=== PATIENT | female | born 1940 | race Caucasian/White ===

== ENCOUNTER 2022-04-06 14:23 | Outpatient (REF) | payer MEDICARE, SELFPAY | END 2022-04-06 14:24 | disposition home or self-care (01) | LOC: HO.LNP 14:23 | PROVIDERS: Visit Provider Emergency Medicine | DX: R30.0 Dysuria (principal) | CPT/HCPCS: 87086; 87088; 87186 ==

== ENCOUNTER 2022-06-10 11:58 | Outpatient (REF) | payer MEDICARE, SELFPAY | END 2022-06-10 11:59 | disposition home or self-care (01) | LOC: HO.LNP 11:58 | PROVIDERS: Visit Provider Internal Medicine | DX: N30.90 Cystitis, unspecified without hematuria (principal) | CPT/HCPCS: 87086; 87088; 87186 ==

== ENCOUNTER 2022-12-10 13:57 | Outpatient (REF) | payer MEDICARE, SELFPAY ==
[2022-12-11 14:17] LABS: Adenovirus F 40/41 Not Detected (Not Detect.); Astrovirus Not Detected (Not Detect.); Campylobacter Not Detected (Not Detect.); Cryptosporidium Not Detected (Not Detect.); Cyclospora cayetanensis Not Detected (Not Detect.); E. coli EAEC Not Detected (Not Detect.); E. coli EPEC Not Detected (Not Detect.); E. coli ETEC Not Detected (Not Detect.); E. coli STEC Not Detected (Not Detect.); Entamoeba histolytica Not Detected (Not Detect.); Giardia lamblia Not Detected (Not Detect.); Norovirus GI/GII Not Detected (Not Detect.); Plesiomonas shigelloides Not Detected (Not Detect.); Rotavirus A Not Detected (Not Detect.); Salmonella Not Detected (Not Detect.); Sapovirus Not Detected (Not Detect.); Shigella sp./EIEC Not Detected (Not Detect.); Vibrio Not Detected (Not Detect.); Vibrio Cholerae Not Detected (Not Detect.); Yersinia enterocolitica Not Detected (Not Detect.)
== END 2022-12-10 13:58 | disposition home or self-care (01) ==
LOC: HO.HMGCLNP 13:57
PROVIDERS: PCP Internal Medicine; Visit Provider Internal Medicine
DX: R19.7 Diarrhea, unspecified (principal)
CPT/HCPCS: 87507

== ENCOUNTER 2023-07-03 11:26 | Emergency (ER) | payer MEDICARE, SELFPAY ==
[2023-07-03 11:39] VITALS: BP 143/84; PULSE 90; O2SAT 96
[2023-07-03 11:42] VITALS: RESP 18; TEMP 36.7; O2SAT 91; BMI 25.8
--- NOTE | 2023-07-03 11:42 | ED.GENADULT ---
HPI - General Adult General Chief complaint: General Medical Stated complaint: Covid+/ Sore throat Time Seen by Provider: 07/03/23 11:30 Source: patient and EMS Mode of arrival: EMS Limitations: no limitations History of Present Illness HPI narrative: This is an 83-year-old female history of diabetes, hypertension, hyperlipidemia, tested positive for COVID yesterday 07/02/2023 presenting with congestion, fatigue, malaise, myalgias, sore throat since the reason she came in was because her throat was hurting a lot and she was having difficulty eating since Tuesday. She reports she has tried to drink fluids however hurts. Patient denies chest pain, shortness of breath, fevers, chills, nausea, vomiting, abdominal pain or diarrhea. Was advised to come in by her family member who is a nurse. Related Data Home Medications Medication Instructions Recorded Confirmed atorvastatin 80 mg tablet 80 mg PO DAILY 04/24/22 12/02/22 levothyroxine 100 mcg tablet 100 mcg PO DAILY 04/24/22 12/02/22 (Synthroid) metformin 500 mg tablet 500 mg PO BID 04/24/22 12/02/22 valsartan 320 mg tablet 320 mg PO DAILY 04/24/22 12/02/22 atenolol 50 mg tablet 50 mg PO DAILY 05/21/22 12/02/22 Previous Rx's Medication Instructions Recorded Magic Mouthwash 5 ml PO TID #240 mL 07/03/23 Diphen/Lido/Antacid 1:1:1 240 mL suspension Allergies Allergy/AdvReac Type Severity Reaction Status Date / Time No Known Allergies Allergy Verified 12/02/22 11:00 Review of Systems Review of Systems: Constitutional : No Weight loss, No Fever, No Chills, + Fatigue, + Malaise ENT/Mouth : + sore throat, No Rhinorrhea Eyes: No Eye Pain, No Swelling, No Redness Cardiovascular : No Chest Pain, No SOB, No Dyspnea on Exertion, No Orthopnea, No Edema, No Palpitations Respiratory : No Cough, No Sputum, No Wheezing Gastrointestinal : No Nausea, No Vomiting, No Diarrhea, No Constipation, No abdominal Pain, No Hematochezia, No Melena Genitourinary : No Dysuria, No Urinary Frequency, No Hematuria, Musculoskeletal : No joint pain, + Myalgias, No Joint Swelling Skin : No Skin Lesions, No rash Neuro : No Weakness, No Numbness, No Dizziness, No Headache Psych : No Anxiety/Panic, No Depression All other systems reviewed and are negative Yes all other systems are reviewed and are negative [facility]LY [facility] Past Medical History Attestation statement: The following information was validated with the patient. Source: old records reviewed and nursing notes reviewed Surgical History Hx of appendectomy H/O: hysterectomy Family History Family History Father No problems noted. Mother Hypertension Cancer Brother Cancer Brother Cancer Social History Social History Housing: Condominium Patient Tobacco Use Status: Never used Tobacco e-Cigarette/Vaping Use: Never Used Advance Directives: No Current occupational status: retired Cognitive needs: No Hearing needs: No Vision needs: Yes Physical Exam ED Vital Signs: Vital Signs - 24 hr 07/03/23 11:42 07/03/23 11:45 Temperature 98.1 F Pulse Rate 86 Respiratory Rate 18 Blood Pressure 129/77 Pulse Oximetry 91 L Oxygen Delivery Method Room Air BMI result Body Mass Index 25.8 vss Appearance: Alert.? Oriented X3.? No acute distress.? Head: Normocephalic, atraumatic, no step-offs or deformities Eyes: Pupils equal, round and reactive to light.? ENT: Pharynx normal.??Midline uvula. No abscess or exudates visualized. Speaking in full sentences controlling secretions well. Neck: Normal inspection.? Neck supple.? CVS: Normal heart rate and rhythm.? Pulses normal.? Respiratory: No respiratory distress.? Breath sounds normal.? Abdomen: Soft and nontender.? Skin: Skin warm and dry.? Normal skin color.? Normal skin turgor.? Extremities: No lower extremity edema.? 5/5 strength to bilateral upper and lower extremities Neuro: Oriented X 3.? No motor deficit.? No sensory deficit. CN 2-12 intact Medical Decision Making Medical Decision Making MDM Narrative: 83-year-old female known COVID positive presents with sore throat, fatigue, malaise, myalgias and congestion since . Physical exam Pharynx normal.??Midline uvula. No abscess or exudates visualized. Speaking in full sentences controlling secretions well. History and physical exam concerning for COVID-19 with subsequent pharyngitis, unlikely strep pharyngitis, retropharyngeal abscess, peritonsillar abscess, threat to airway, respiratory distress. Unlikely metabolic derangements. Plan at this time strep test, p.o. challenge will give viscous lidocaine Educated patient on diagnosis and treatment plan, answered all question, patient verbalizes understanding. At this time patient will be discharged home, advised to return with new or worsening symptoms. Educated on worrisome signs and symptoms and when to return. At this time I feel comfortable discharge home. Differential Diagnosis Differential Diagnoses: The differential diagnosis associated with the presentation includes History and physical exam concerning for COVID-19 with subsequent pharyngitis, unlikely strep pharyngitis, retropharyngeal abscess, peritonsillar abscess, threat to airway, respiratory distress. Unlikely metabolic derangements. Admission/Observation Consideration of admission/observation: Escalation of care including admission/observation considered Lab Data MDM Lab Attestation statement: I reviewed the patient's lab results. Tests considered The following testing was considered but not selected: no indication for labs no signs of systemic illness. No signs of threat to airway or abscess no need for imaging of throat/ neck Tollerating po unlikley metabolic derangments Prescription Management Considered Paxlovid however symptom onset risks outweigh benifits at this time Critical Care Time Critical Care Time Critical Care Time: No Discharge Plan Discharge Clinical Impression: COVID-19, Sore throat Patient Disposition: Home, Self-Care Instructions: Pharyngitis (ED), COVID-19 (Coronavirus Disease 2019) (ED) Additional Instructions: Take your medications as prescribed. If you were prescribed antibiotics today, it is important that you take your medication to their entirety, do not skip any doses, do not finish them early. Follow-up with your primary care provider this week. Return to the emergency department with new or worsening symptoms. Such as fevers, chills, chest pain, shortness of breath, nausea, vomiting, dizziness, headache, vision changes, lethargy In case of emergency call 911 Please do salt water gargle 2-3 times a day Prescriptions: New Magic Mouthwash Diphen/Lido/Antacid 1:1:1 240 mL suspension 5 ml PO TID Qty: 240 0RF Rx Instructions: Lidocaine Viscous 2 % 80mL; diphenhydramine 12.5 mg/5 mL 80mL; aluminum-mag hydrox-simeth [id number]/5mL 80mL Swish and spit, do not swallow No Action levothyroxine [Synthroid] 100 mcg tablet 100 mcg PO DAILY atorvastatin 80 mg tablet 80 mg PO DAILY metformin 500 mg tablet 500 mg PO BID valsartan 320 mg tablet 320 mg PO DAILY atenolol 50 mg tablet 50 mg PO DAILY Referrals: Amna Beckham MD [Primary Care Provider] - 2 days
[2023-07-03 11:45] VITALS: BP 129/77; PULSE 86
[2023-07-03] MEDS: Lidocaine HCl Viscous 2 % 15 ML SOLUTION 10 ML MUCOUS MEM (11:49)
--- NOTE | 2023-07-03 11:52 | PC.NURSE ---
Patient reports tested positive for covid 07/02 and has a sore throat. Denies sob, chest pain, or headache. Medicated per mar
== END 2023-07-03 13:02 | disposition home or self-care (01) ==
PROVIDERS: Emergency Provider Emergency Medicine; PCP Internal Medicine
DX: U07.1 COVID-19 (principal); J02.9 Acute pharyngitis, unspecified; E11.9 Type 2 diabetes mellitus without complications; I10 Essential (primary) hypertension
CPT/HCPCS: 99283; 99284

== ENCOUNTER 2023-12-09 09:19 | Outpatient (AMB) | payer MEDICARE, SELFPAY ==
[2023-12-09 09:20] VITALS: BP 104/62; PULSE 77; O2SAT 95; BMI 25.3
--- NOTE | 2023-12-09 09:20 | MHC.PC.OV ---
Vital Signs 12/09/23 09:20 Height 5 ft 6 in Weight 157 lb BMI 25.3 BP 104/62 Blood Pressure Location Rt brachial Position Sitting Pulse 77 Pulse Source Pulse Oximeter Pulse Oximetry (%) 95 Oxygen Delivery Method Room Air Intake Visit Reasons: Left Leg pain Intake Note: Pt is here today for a sick visit. Pt c/o L lower leg pain for a long time now. Allergies No Known Allergies Allergy (Verified 12/09/23 09:21) Medication List - Last Reconciled 12/09/23 by Amna Beckham MD atenolol 50 mg PO DAILY atorvastatin 80 mg PO DAILY donepezil 5 mg PO BEDTIME levothyroxine (Synthroid) 100 mcg PO DAILY Magic Mouthwash Diphen/Lido/Antacid 1:1:1 5 mL PO TID metformin 500 mg PO BID valsartan 320 mg PO DAILY Tobacco use date assessed: 12/09/23 Fall risk assessment: No Falls in past year Last assessed Fall Risk: 12/09/23 Dental Screening Dental Screen Date: 12/09/23 Did you have a dental visit in the last 12 months?: No Did you have a dental problem in the last 6 months where you did not have access to dental care?: No Was dental information given to patient?: Patient declined HPI Left Leg pain HPI Details Pt presents for follow-up on hypertension, hyperlipidemia and hypothyroid. She complains of chronic and persistent LLE worse when walking getting worse over last 2 weeks. She denies pain at rest or lower back pain, weakness or numbness in extremities PFSH Surgical History Hx of appendectomy H/O: hysterectomy Family History Father No problems noted. Mother Hypertension Cancer Brother Cancer Brother Cancer Social History Housing: Condominium Patient Tobacco Use Status: Never used Tobacco e-Cigarette/Vaping Use: Never Used service: No Current occupational status: retired Cognitive needs: No Hearing needs: No Vision needs: Yes Questionnaire PHQ-9 Over the last 2 weeks, how often have you been bothered by any of the following problems? 1. Little interest or pleasure in doing things: not at all 2. Feeling down, depressed, or hopeless: not at all 3. Trouble falling or staying asleep, or sleeping too much: not at all 4. Feeling tired or having little energy: not at all 5. Poor appetite or overeating: not at all 6. Feeling bad about yourself - or that you are a failure or have let yourself or your family down: not at all 7. Trouble concentrating on things, such as reading the newspaper or watching television: not at all 8. Moving or speaking so slowly that other people could have noticed. Or the opposite - being so fidgety or restless that you have been moving around a lot more than usual: not at all 9. Thoughts that you would be better off or of hurting yourself in some way: not at all Total score: 0 Depression Screening Interpretation: Negative Depression Screening Done: Yes Source: Developed by Drs. Tremayne Gomez, Malu Muro, Mj Taylor and colleagues, with an educational viky from [employer]. Thrive Questionnaire Date Thrive assessed: 12/09/23 I am a: Patient What is your living situation today?: I have a steady place to live Within the past 12 months, did the food you bought not last and you didn't have the money to get more?: Never true Within the past 12 months, did you worry whether your food would run out before you got money to buy more?: Never true Do you have trouble paying for medicines?: No Do you have trouble getting transportation to medical appointments?: No Do you have trouble paying your heating and electricity bill?: No Do you have trouble taking care of your child, family member or friend?: No Do you have trouble with day-to-day activities such as bathing, preparing meals, shopping, managing finances, etc.?: No Are you currently unemployed and looking for a job?: No Are you interested in more education?: No Please select the resources that you would like help with: None THRIVE Score: 0 AUDIT C Alcohol Use Questionnaire (AUDIT-C) 1. How often do you have a drink containing alcohol?: Never 3. How often do you have six or more drinks on one occasion?: Never Total Score: 0 ROBBY-7 AMB Questionnaire ROBBY-7 Date ROBBY - 7 assessed: 12/09/23 Feeling nervous, anxious, or on edge: 0 = Not at all Not being able to stop or control worryin = Not at all Worrying too much about different things: 0 = Not at all Trouble relaxin = Not at all Being so restless that it is hard to sit still: 0 = Not at all Becoming easily annoyed or irritable: 0 = Not at all Feeling afraid as if something awful might happen: 0 = Not at all Total ROBBY-7 score (0-4 normal; 5-9 mild; 10-14 moderate; 15-21 severe): 0 Source: Developed by Drs. Tremayne Gomez, Malu Muro, Mj Taylor and colleagues, with an educational viky from [employer]. Review of Systems Const All systems reviewed & are unremarkable except as noted in HPI and below ENT Reports no additional complaints Card Reports no additional complaints Resp Reports no additional complaints GI Reports no additional complaints Reports no additional complaints Physical exam (Primary Care) Vital Signs: Last Vital Signs Pulse 77 12/09/23 09:20 BP 104/62 12/09/23 09:20 Pulse Ox 95 12/09/23 09:20 Oxygen Delivery Method Room Air 12/09/23 09:20 BMI result Body Mass Index 25.3 Tobacco/Smoking Status: Tobacco use Status Tobacco use date assessed 12/09/23 12/09/23 09:29 Patient Tobacco Use Status Never used Tobacco 12/09/23 09:29 e-Cigarette/Vaping Use Never Used 12/09/23 09:29 PHQ-9: PHQ-9 Score PHQ-9: Total score 0 12/09/23 10:13 Depression Screening Interpretation: Negative Thrive Assessment: Date of Thrive Assessment Date Thrive assessed 12/09/23 12/09/23 10:13 Const General: no acute distress HENMT Head: Yes normal to inspection Eyes General: appearance normal, both eyes and all related structures Neck Neck: Yes supple Resp Effort & Inspection: normal respiratory effort Auscultation: clear to auscultation bilaterally Cardio Rhythm: regular rhythm Heart sounds: S1 normal heart sound present and S2 normal heart sound present GI Inspection: Yes normal to inspection Palpation (GI): Soft to palpation Percussion: Yes normal to percussion Auscultation: normal bowel sounds Extrem Other: There is a left calf tenderness, no erythema warmth, straight leg rising 90 degrees bilaterally there is slightly decreased range of motion in the hips bilaterally Assessment and Plan Assessment & Plan (1) HTN (hypertension): Code(s): I10 - Essential (primary) hypertension Plan: Continue atenolol and valsartan (2) Hyperlipidemia: Code(s): E78.5 - Hyperlipidemia, unspecified Plan: Continue atorvastatin (3) DM type 2 (diabetes mellitus, type 2): Code(s): E11.9 - Type 2 diabetes mellitus without complications Plan: ADA diet regular exercise weight loss discussed with the patient she will have a fasting blood work today. (4) Leg pain, left: Code(s): M79.605 - Pain in left leg Plan: For chronic left lower extremity pain and tenderness will obtain venous Doppler to rule out DVT, patient will be referred to physical therapy for radiculopathy Orders: Orders UA w Microscopic Today E11.9 - Type 2 diabetes mellitus without complications, E78.5 - Hyperlipidemia, unspecified, I10 - Essential (primary) hypertension Urine Culture Today E11.9 - Type 2 diabetes mellitus without complications, E78.5 - Hyperlipidemia, unspecified, I10 - Essential (primary) hypertension Complete Blood Count Auto Diff Today E11.9 - Type 2 diabetes mellitus without complications, E78.5 - Hyperlipidemia, unspecified, I10 - Essential (primary) hypertension Hemoglobin A1c Today E11.9 - Type 2 diabetes mellitus without complications, E78.5 - Hyperlipidemia, unspecified, I10 - Essential (primary) hypertension TSH reflex Free T4 Today E11.9 - Type 2 diabetes mellitus without complications, E78.5 - Hyperlipidemia, unspecified, I10 - Essential (primary) hypertension Comprehensive [place]. Panel Fast Today E11.9 - Type 2 diabetes mellitus without complications, E78.5 - Hyperlipidemia, unspecified, I10 - Essential (primary) hypertension GI Panel Today E11.9 - Type 2 diabetes mellitus without complications, E78.5 - Hyperlipidemia, unspecified, I10 - Essential (primary) hypertension Lipid Panel Today E11.9 - Type 2 diabetes mellitus without complications, E78.5 - Hyperlipidemia, unspecified, I10 - Essential (primary) hypertension PT Evaluation and Treatment Today E11.9 - Type 2 diabetes mellitus without complications, E78.5 - Hyperlipidemia, unspecified, I10 - Essential (primary) hypertension US venous duplex LE LT Today M79.605 - Pain in left leg Coding Level of Care Code Est Pt Level 4 (74129) Diagnoses HTN (hypertension) I10 Hyperlipidemia E78.5 DM type 2 (diabetes mellitus, type 2) E11.9 Leg pain, left M79.605
== END 2023-12-09 11:13 | disposition home or self-care (01) ==
PROVIDERS: PCP Internal Medicine; Visit Provider Internal Medicine
DX: I10 Essential (primary) hypertension (principal); E78.5 Hyperlipidemia, unspecified; E11.9 Type 2 diabetes mellitus without complications; M79.605 Pain in left leg
CPT/HCPCS: 99214

== ENCOUNTER 2023-12-09 10:36 | Outpatient (REF) | payer MEDICARE, SELFPAY ==
--- NOTE | ~2023-12-09 | US_ITS ---
EXAMINATION: US VENOUS ULTRASOUND WITH DOPPLER LOWER EXTREMITY, LEFT CLINICAL INFORMATION: Pain COMPARISON: None available. TECHNIQUE: Ultrasound of the deep veins is performed from the hip to the calf with compression sonography and color and pulse Doppler assessment. Spectral analysis with color-flow imaging is performed. FINDINGS: There is normal venous compression and respiratory variation and augmented flow. The visualized common femoral vein, superficial femoral vein, profunda femoral vein, popliteal vein, and the trifurcation region shows no evidence of deep venous thrombosis. There is no significant popliteal fossa cyst. US/US venous duplex LE LT IMPRESSION: No DVT demonstrated in the left lower extremity.
[2023-12-09 13:15] LABS: MANUAL DIFF FLAG NO
[2023-12-09 13:17] LABS: Appearance Urine Turbid; Color Urine Yellow; Glucose Urine UA Negative (Negative); Leukocyte Esterase Urine Large (3+) (Negative); Nitrite Urine Negative (Negative); Specific Gravity - Urine >= 1.030 (1.005-1.025); UMIC TRIGGER UA YES; Urine Blood Moderate (2+) (Negative); Urine Ketones Negative (Negative); Urine Protein 100 (2+) mg/dL (Neg-Trace)
[2023-12-09 13:28] LABS: Basophils Absolute Auto 0.1 X10*3/uL (0.0-0.2); Basophils Percent Auto 0.5 % (0-2); Eosinophils Absolute Auto 0.2 X10*3/uL (0.0-0.4); Eosinophils Percent Auto 1.6 % (0-4); Hematocrit 40.7 % (37.0-47.0); Hemoglobin 13.4 g/dl (12.0-16.0); Imm Gran Abs Auto 0.02 X10*3/uL (0.00-0.03); Imm Gran Pct Auto 0.2 % (0.0-0.4); Lymphocytes Absolute Auto 2.1 X10*3/uL (1.2-4.9); Lymphocytes Percent Auto 21.1 % (20-40); Mean Corpuscular HGB Conc 32.9 g/dl (31.0-35.0); Mean Corpuscular Volume 91.1 fL (80.0-98.0); Monocytes Absolute Auto 0.7 X10*3/uL (0.1-1.2); Monocytes Percent Auto 6.9 % (2-11); Neutrophils Absolute Auto 6.8 x10*3/uL (2.0-8.3); Neutrophils Percent Auto 69.7 % (45-73); Platelet Count 218 X10*3/uL (160-400); Red Blood Count 4.47 X10*6/uL (4.20-5.50); Red Cell Distribution Width 14.2 % (11.0-16.0); White Blood Count 9.8 X10*3/uL (4.8-10.8)
[2023-12-09 13:36] LABS: Estimated Average Glucose 126 mg/dL; Hemoglobin A1C 148.5372 umol/L
[2023-12-09 13:37] LABS: Bacteria Urine 4+ (None Seen); Hyaline Casts Urine 0-2 /LPF (0-2); RBC Urine >20 /HPF (0-2); Squamous Epithelial Cell Urine 0-2 /HPF (0-2); WBC Urine >50 /HPF (0-5)
[2023-12-09 13:56] LABS: Alanine Aminotransferase 27 U/L (0-31); Albumin Level 4.3 g/dL (3.5-5.0); Alkaline Phosphatase 72 U/L (39-117); Anion Gap 17 (12-20); Aspartate Amino Transferase 25 U/L (5-31); Bilirubin Total 0.6 mg/dL (0.0-1.0); Blood Urea Nitrogen 30 mg/dL (9-16); Calcium 9.8 mg/dL (8.4-10.2); Carbon Dioxide 22 mmol/L (22-29); Chloride 104 mmol/L (96-108); Cholesterol 147 mg/dL (<200); Estimated Glomerular Filt Rate 49; Glucose Fasting 101 mg/dL (60-99); HDL Cholesterol 34 mg/dL (>40); LDL Cholesterol Calculated 72 mg/dL (<100); Potassium 3.9 mmol/L (3.3-5.1); Sodium 139 mmol/L (135-145); Total Protein 7.4 g/dL (6.5-8.0); Triglycerides 208 mg/dL (<150)
[2023-12-09 13:59] LABS: TSH reflex Free T4 0.95 uIU/mL (0.32-4.0)
== END 2023-12-09 10:37 | disposition home or self-care (01) ==
LOC: HO.HMGCX 10:36
PROVIDERS: PCP Internal Medicine; Visit Provider Internal Medicine
DX: M79.605 Pain in left leg (principal); E11.9 Type 2 diabetes mellitus without complications; E78.5 Hyperlipidemia, unspecified; I10 Essential (primary) hypertension
CPT/HCPCS: 36415; 80053; 80061; 81001; 83036; 84443; 85025; 87086; 87088; 87186; 93971

== ENCOUNTER 2024-01-27 13:06 | Outpatient (AMB) | payer MEDICARE, SELFPAY ==
[2024-01-27 13:21] VITALS: BMI 25.2
--- NOTE | 2024-01-27 13:21 | MHC.PC.OV ---
Vital Signs 01/27/24 13:21 Height 5 ft 6 in Weight 156 lb BMI 25.2 Intake Visit Reasons: dinorah chicon to emili Intake Note: Patient has seen NEAL Balderas in [place] and is scheduled for an ultrasound for the pelvic/vaginal area. Chronic UTI's x2 years- started treating with medication, nitrofurantoin 100mg BID, yesterday and it has not helped. Patient states she was screaming in pain still. Patient reports she has frequent episodes of watery stools since June, patient's OBGYN also has stool samples and these results are still pending. Patient reports left leg pain and would like to see PT for sciatica pain. Patient also adds she has loss of appetite. Patient is accompanied by her Niece- who patient would like to establish as a HCP. Patient is interested in a temporary parking placard. Manufacturing Engineering Manager Required: No Accompanied by: Nephew or Niece Allergies No Known Allergies Allergy (Verified 01/27/24 13:58) Medication List - Last Reconciled 01/27/24 by Ivette Bynum, [facility]- atenolol 50 mg PO DAILY atorvastatin 80 mg PO DAILY donepezil 5 mg PO BEDTIME levothyroxine (Synthroid) 100 mcg PO DAILY Magic Mouthwash Diphen/Lido/Antacid 1:1:1 5 mL PO TID metformin 500 mg PO BID nitrofurantoin monohyd/m-cryst 100 mg (Macrobid) 100 mg PO Q12H 7 days valsartan 320 mg PO DAILY Tobacco use date assessed: 12/09/23 Fall risk assessment: No Falls in past year Last assessed Fall Risk: 01/27/24 Dental Screening Dental Screen Date: 12/09/23 HPI HPI Comments History of Present Illness Details 83-year-old female with diabetes type 2, hypertension, hyperlipidemia , recurrent UTIs, hypothyroidism, left-sided sciatica, CKD 3a, Dementia status post hysterectomy 1987, thyroid removed 2012, appendectomy Specialist: Neal [facility] PT Here today with niece and healthcare proxy, Areli, to establish care. # chronic left low back pain w/ radicular sx into L leg w/o trauma. Would like PT referral. #Needs handicap placard. #Needs the healthcare proxy form completed along with MOLST. #Frequent and recurrent UTIs. States that in addition to urinary complaints, she is having vaginal pain. The pain comes and goes. It can be on 1 side or sometimes both. The pain is so bad that it causes her to yellow out. She denies any vaginal discharge. Is active with animal nutrition consultant. Niece reports she is currently on antibiotics. She will undergo a pelvic ultrasound on Tuesday at [facility]. There will be an attempt made at internal as well as external. Reports animal nutrition consultant was unable to do a vaginal exam in the office. #Chronic diarrhea. The patient reports that she has had watery diarrhea since 06/22/2023 associated with a decreased appetite. Subjective weight loss of 5 lb since this time. Very limited records available to me, reviewed. In December of 2022 it appears that she also had a similar complaint. A stool panel was performed and negative. Be that as it may, she reports that she just does not feel hungry. She does not have any bloating or abdominal pain. She tells me that she is up-to-date on her colonoscopies. The last 1 was done about 6 years ago while she was living in [place]. animal nutrition consultant ordered a fecal sample, the results are pending at this time. Of note she is taking metformin as well as Aricept. Both of which can cause GI upset. She just started the Aricept in June. Chart review shows stable weight within 155-156 lb. Exam: Awake alert, NAD, pleasant, accompanied by Areli jimenez. Amb w/ slow gait using walker RRR LS CTAB Abd soft, nontender Nonpitting edema BLE, + varicose veins,decreased PP bilat, skin intact Neuro: Mildly forgetful, defers to tony for fine details; uncertain about time/date. Plan: Refer to PT Advised to print the forms from the RN V and bring them to the next office visit for me to complete Healthcare proxy and MOLST reviewed today. Encouraged to complete and return to the office. For the diarrhea, I query if this is related to medications. At this time we will have her hold metformin for 2 weeks to see if this helps her diarrhea. If it does not I have told her to restart taking the metformin as directed, then proceed to hold donepezil for 2 weeks. I will see her and her niece back in about 6 weeks. Advised to keep me up-to-date via the portal. Should her GI symptoms not improve with the medication changes, we will proceed with imaging. This note is constructed using voice recognition software. While every effort has been made to ensure accuracy in water control station engineer, still errors may have been included Sometimes, these errors may affect the content or meaning of the given sentence . Total time spent caring for the patient today was 45 minutes. This includes time spent before the visit reviewing the chart, time spent during the visit, and time spent after the visit on documentation [facility] Medical History (Updated 01/28/24 @ 10:51 by Ivette Bynum, [facility]) Urinary tract infection Hyperlipidemia HTN (hypertension) DM type 2 (diabetes mellitus, type 2) Diarrhea Surgical History Hx of appendectomy H/O: hysterectomy Family History Father No problems noted. Mother Hypertension Cancer Brother Cancer Brother Cancer Social History Housing: Condominium Patient Tobacco Use Status: Never used Tobacco e-Cigarette/Vaping Use: Never Used service: No Current occupational status: retired Cognitive needs: No Hearing needs: No Vision needs: Yes Questionnaire Thrive Questionnaire Date Thrive assessed: 12/09/23 ROBBY-7 AMB Questionnaire ROBBY-7 Date ROBBY - 7 assessed: 12/09/23 Source: Developed by Drs. Tremayne Gomez, Malu Muro, Mj Taylor and colleagues, with an educational viky from [employer]. Physical exam (Primary Care) BMI result Body Mass Index 25.2 Tobacco/Smoking Status: Tobacco use Status Tobacco use date assessed 12/09/23 01/27/24 13:35 Patient Tobacco Use Status Never used Tobacco 01/27/24 13:35 e-Cigarette/Vaping Use Never Used 01/27/24 13:35 Thrive Assessment: Date of Thrive Assessment Date Thrive assessed 12/09/23 01/27/24 13:35 Assessment and Plan Assessment & Plan (1) Leg pain, left: Code(s): M79.605 - Pain in left leg (2) Sciatica, left side: Code(s): M54.32 - Sciatica, left side (3) Diarrhea: Code(s): R19.7 - Diarrhea, unspecified Qualifiers: Diarrhea type: due to malabsorption Qualified Code(s): K90.9 - Intestinal malabsorption, unspecified; R19.7 - Diarrhea, unspecified (4) Dementia: Code(s): F03.90 - Unspecified dementia, unspecified severity, without behavioral disturbance, psychotic disturbance, mood disturbance, and anxiety Qualifiers: Dementia type: unspecified type Dementia severity: mild Dementia behavioral or psychological symptom: without behavioral, psychotic, or mood disturbance or anxiety Qualified Code(s): F03.A0 - Unspecified dementia, mild, without behavioral disturbance, psychotic disturbance, mood disturbance, and anxiety (5) CKD stage 3a, GFR 45-59 ml/min: Code(s): N18.31 - Chronic kidney disease, stage 3a (6) Hypothyroid: Code(s): E03.9 - Hypothyroidism, unspecified Qualifiers: Hypothyroidism type: postoperative Qualified Code(s): E89.0 - Postprocedural hypothyroidism (7) Hyperlipidemia: Code(s): E78.5 - Hyperlipidemia, unspecified Qualifiers: Hyperlipidemia type: mixed hyperlipidemia Qualified Code(s): E78.2 - Mixed hyperlipidemia (8) HTN (hypertension): Code(s): I10 - Essential (primary) hypertension Qualifiers: Hypertension type: primary hypertension Qualified Code(s): I10 - Essential (primary) hypertension (9) DM type 2 (diabetes mellitus, type 2): Code(s): E11.9 - Type 2 diabetes mellitus without complications Qualifiers: Diabetes mellitus ferry terminal agent insulin use: without skilled nursing use Diabetes mellitus complication status: with kidney complications Diabetes mellitus complication detail: with chronic kidney disease Chronic kidney disease stage: stage 3 (moderate) Chronic kidney disease stage 3 subtype: stage 3a (GFR 45-59) Qualified Code(s): E11.22 - Type 2 diabetes mellitus with diabetic chronic kidney disease; N18.31 - Chronic kidney disease, stage 3a (10) Recurrent UTI: Code(s): N39.0 - Urinary tract infection, site not specified Orders: Orders PT Evaluation and Treatment 01/27/24 M54.32 - Sciatica, left side, M79.605 - Pain in left leg Coding Level of Care Code Est Pt Level 5 (76240) Diagnoses Leg pain, left M79.605 Sciatica, left side M54.32 Diarrhea due to malabsorption K90.9; R19.7 Diarrhea type: due to malabsorption Mild dementia without behavioral disturbance, psychotic disturbance, mood disturbance, or anxiety, unspecified dementia type F03.A0 Dementia type: unspecified type Dementia severity: mild Dementia behavioral or psychological symptom: without behavioral, psychotic, or mood disturbance or anxiety CKD stage 3a, GFR 45-59 ml/min N18.31 Postoperative hypothyroidism E89.0 Hypothyroidism type: postoperative Mixed hyperlipidemia E78.2 Hyperlipidemia type: mixed hyperlipidemia Primary hypertension I10 Hypertension type: primary hypertension Type 2 diabetes mellitus with stage 3a chronic kidney disease, without long-term current use of insulin E11.22; N18.31 Diabetes mellitus skilled nursing insulin use: without skilled nursing use Diabetes mellitus complication status: with kidney complications Diabetes mellitus complication detail: with chronic kidney disease Chronic kidney disease stage: stage 3 (moderate) Chronic kidney disease stage 3 subtype: stage 3a (GFR 45-59) Recurrent UTI N39.0
== END 2024-01-27 14:55 | disposition home or self-care (01) ==
PROVIDERS: PCP Nurse Practitioner Family; Visit Provider Nurse Practitioner Family
DX: M79.605 Pain in left leg (principal); M54.32 Sciatica, left side; K90.9 Intestinal malabsorption, unspecified; R19.7 Diarrhea, unspecified; F03.A0 Unspecified dementia, mild, without behavioral disturbance, psychotic disturbance, mood disturbance, and anxiety; E11.22 Type 2 diabetes mellitus with diabetic chronic kidney disease; N18.31 Chronic kidney disease, stage 3a; E89.0 Postprocedural hypothyroidism; E78.2 Mixed hyperlipidemia; I10 Essential (primary) hypertension; N39.0 Urinary tract infection, site not specified
CPT/HCPCS: 99214

== ENCOUNTER 2024-03-12 11:22 | Outpatient (AMB) | payer MEDICARE, SELFPAY ==
--- NOTE | 2024-03-12 11:53 | A.OFFPC_ITS ---
Vital Signs 03/12/24 11:56 Height 5 ft 6 in Weight 153 lb BMI 24.7 BP 118/68 Blood Pressure Location Rt brachial Position Sitting Respiration 14 Pulse 77 Pulse Source Pulse Oximeter Pulse Oximetry (%) 97 Oxygen Delivery Method Room Air Intake Visit Reasons: min fu diarrhea/est care Intake Note: follow up on diarrhea Allergies No Known Allergies Allergy (Verified 03/12/24 12:04) Medication List - Last Reconciled 03/12/24 by Ivette Bynum, [facility]- atenolol 50 mg PO DAILY atorvastatin 80 mg PO DAILY donepezil 5 mg PO BEDTIME levothyroxine (Synthroid) 100 mcg PO DAILY Magic Mouthwash Diphen/Lido/Antacid 1:1:1 5 mL PO TID metformin 500 mg PO BID nitrofurantoin monohyd/m-cryst 100 mg (Macrobid) 100 mg PO Q12H 7 days valsartan 320 mg PO DAILY Tobacco use date assessed: 12/09/23 Dental Screening Dental Screen Date: 12/09/23 HPI HPI Comments History of Present Illness Details 83-year-old female with diabetes type 2, hypertension, hyperlipidemia , recurrent UTIs, hypothyroidism, left-sided sciatica, CKD 3a, Dementia status post hysterectomy 1987, thyroid removed 2012, appendectomy Specialist: ObGyn Dr Velia Torres [facility] PT Here today for follow up of chronic diarrhea and pelvic pain. Since last office visit she did hold her Aricept for a few weeks. Admits that her diarrhea resolved completely. However she restarted it. She is really unsure why she restarted it however she reports that she continues to have improvement in her diarrhea. Now only having 1-2 times per day. She never did hold the metformin as directed. Be that as it may the Aricept is the medication that was added most recently, prior to the onset of her diarrhea. She denies any abdominal pain today. In regards to the pelvic/vaginal pain that she has the niece reports today that the workup with the channel worker was negative. States that she had a transabdominal ultrasound as they were not able to do a transvaginal one. Reports that this was negative. She also reports that the stool studies done by the lpn per diem were negative. Unfortunately, I do not have any notes or copies of these diagnostics. She continues to have the same vaginal pain. Describes as severe causing her to yell out in pain. Reports that the pain is better with Vaseline. Denies any vaginal bleeding. She does admit to pelvic, lower abdominal pain. Weight is decreased since last office visit by a few lb. She was also referred to physical therapy for left leg pain. She reports a history of sciatica which resolved well with physical therapy in the past. The physical therapy team as indicated that she is not improving. Recommending. At this time and pursue further workup. The patient denies any overt injury. The pain is located on the lateral aspect of the left lower extremity. States that the pain is there all of the time. She has tried to take Tylenol with no relief. Exam: Awake alert, NAD, pleasant, accompanied by Areli moraes. Amb w/ slow gait using walker RRR LS CTAB Abd soft, nontender, normoactive BS Nonpitting edema BLE, + varicose veins,decreased PP bilat, skin intact, pain w/ palpation generally speaking to left lower leg. no focal bony tenderness. Full ROM of the ankle that does not worsen the pain. Neuro: Mildly forgetful, defers to dimitry for fine details; uncertain about time/date. Plan: Try lidocaine 4% oint + vaseline externally to see if this helps , okay to mix it Vaseline. Stop aricept as her diarrhea resolved completely when you are off of this. Side effect profile associated with this is not worth the clinical benefit. For her abdominal and pelvic pain, I will check a CT of the abdomen and pelvis with p.o. contrast. I have sent the order for the p.o. contrast to [facility] pharmacy. I have checked a CMP today and her renal function is appropriate. I would recommend scheduling a telehealth visit with me after this imaging is sense that we can review the results in the plan of care. For the left lower extremity pain, hold physical therapy as she is not gaining any benefit. Check an x-ray and refer to new [facility]. I do recommend a routine follow up of chronic conditions in 4 months. This note is constructed using voice recognition software. While every effort has been made to ensure accuracy in wastewater project engineer, still errors may have been included Sometimes, these errors may affect the content or meaning of the given sentence . Total time spent caring for the patient today was 40 minutes. This includes time spent before the visit reviewing the chart, time spent during the visit, and time spent after the visit on documentation [facility] Medical History (Updated 03/12/24 @ 15:19 by Ivette Bynum [facility]) Urinary tract infection Hyperlipidemia HTN (hypertension) DM type 2 (diabetes mellitus, type 2) Diarrhea Surgical History Hx of appendectomy H/O: hysterectomy Family History Father No problems noted. Mother Hypertension Cancer Brother Cancer Brother Cancer Social History Housing: Condominium Patient Tobacco Use Status: Never used Tobacco e-Cigarette/Vaping Use: Never Used service: No Current occupational status: retired Cognitive needs: No Hearing needs: No Vision needs: Yes Questionnaire Thrive Questionnaire Date Thrive assessed: 12/09/23 ROBBY-7 AMB Questionnaire ROBBY-7 Date ROBBY - 7 assessed: 12/09/23 Source: Developed by Drs. Tremayne Gomez, Malu Muro, Mj Taylor and colleagues, with an educational viky from [employer]. Physical exam (Primary Care) Vital Signs: Last Vital Signs Pulse 77 03/12/24 11:56 Resp 14 03/12/24 11:56 BP 118/68 03/12/24 11:56 Pulse Ox 97 03/12/24 11:56 Oxygen Delivery Method Room Air 03/12/24 11:56 BMI result Body Mass Index 24.7 Tobacco/Smoking Status: Tobacco use Status Tobacco use date assessed 12/09/23 03/12/24 11:54 Patient Tobacco Use Status Never used Tobacco 03/12/24 11:54 e-Cigarette/Vaping Use Never Used 03/12/24 11:54 Thrive Assessment: Date of Thrive Assessment Date Thrive assessed 12/09/23 03/12/24 11:54 Results Reviewed Results Reviewed: RUN: 03/12/24 1516 PAGE 1 [facility] [address] [place] [id number] Launching Pad Mechanic: Jonh Dia M.D. Specimen Inquiry Name: Constanza Friend Age/Sex: 83/F : 1940 Unit#: [id number] Attend Dr: Ivette Bynum [facility] Re03/12/24 Status: REG REF Location: [facility] [facility] Disch: SPEC : [id number] GERALD: 03/12/24 STATUS: COMP REQ : [id number] RECD: 03/12/24-[address]: Ivette Bynum [facility] COMP: 03/12/24-1508 ENTERED: 03/12/[address] [facility] [address]: ORDERED: CMP Test Result Flag Reference Sodium 144 135-145 mmol/L Potassium 4.0 3.3-5.1 mmol/L CL 105 96-108 mmol/L CO2 29 22-29 mmol/L Gap 14 12-20 BUN 18 H 9-16 mg/dL Creat 0.84 0.5-1.4 mg/dL EGFR > 60 NOTE: For -Bahamian individuals, multiply the result by 1.210. Chronic Kidney Disease: Estimated GFR < 60 mL/min/1.73m2 Severe Kidney Disease: Estimated GFR < 15 mL/min/1.73m2 Glucose, Random 93 60-115 mg/dL CA 10.0 8.4-10.2 mg/dL Total Bili 0.5 0.0-1.0 mg/dL AST (GOT) 23 5-31 U/L ALT (GPT) 24 0-31 U/L Protein, Total 7.4 6.5-8.0 g/dL Alb 4.1 3.5-5.0 g/dL Alk Phos 76 39-117 U/L Assessment and Plan Assessment & Plan (1) Combined abdominal and pelvic pain: Code(s): R10.9 - Unspecified abdominal pain; R10.2 - Pelvic and perineal pain (2) CKD stage 3a, GFR 45-59 ml/min: Code(s): N18.31 - Chronic kidney disease, stage 3a (3) Leg pain, left: Code(s): M79.605 - Pain in left leg (4) Diarrhea: Code(s): R19.7 - Diarrhea, unspecified Qualifiers: Diarrhea type: due to malabsorption Qualified Code(s): K90.9 - Intestinal malabsorption, unspecified; R19.7 - Diarrhea, unspecified Orders: Orders Comprehensive Met. Panel Today N18.31 - Chronic kidney disease, stage 3a XR tibia fibula LT 2V Today M79.605 - Pain in left leg CT abdomen pelvis wo IV con Today K90.9 - Intestinal malabsorption, unspecified, R10.2 - Pelvic and perineal pain, R10.9 - Unspecified abdominal pain, R19.7 - Diarrhea, unspecified Referrals Orthopedics Referral M79.605 - Pain in left leg Medications: New lidocaine HCl 4% (AsperFlex (lidocaine HCl)) 1 application as needed for pain three times per day 1 ea topical TID PRN 100 grams 0RF pain barium sulfate 2%(w/v) (Readi-Cat 2) TAKE FIRST BOTTLE 2 HOURS PRIOR TO EXAM, WAIT 1 HOUR THEN DRINK SECOND BOTTLE 450 mL PO DIRECTED 900 mL 0RF Coding Level of Care Code Est Pt Level 5 (76920) Diagnoses Combined abdominal and pelvic pain R10.9; R10.2 CKD stage 3a, GFR 45-59 ml/min N18.31 Leg pain, left M79.605 Diarrhea due to malabsorption K90.9; R19.7 Diarrhea type: due to malabsorption
[2024-03-12 11:56] VITALS: BP 118/68; PULSE 77; RESP 14; O2SAT 97; BMI 24.7
== END 2024-03-12 12:31 | disposition home or self-care (01) ==
PROVIDERS: PCP Internal Medicine; Visit Provider Nurse Practitioner Family
DX: R10.2 Pelvic and perineal pain (principal); N18.31 Chronic kidney disease, stage 3a; M79.605 Pain in left leg; K90.9 Intestinal malabsorption, unspecified; R19.7 Diarrhea, unspecified
CPT/HCPCS: 99215

== ENCOUNTER 2024-03-12 12:43 | Outpatient (REF) | payer MEDICARE, SELFPAY ==
[2024-03-12 15:09] LABS: Alanine Aminotransferase 24 U/L (0-31); Albumin Level 4.1 g/dL (3.5-5.0); Alkaline Phosphatase 76 U/L (39-117); Anion Gap 14 (12-20); Aspartate Amino Transferase 23 U/L (5-31); Bilirubin Total 0.5 mg/dL (0.0-1.0); Blood Urea Nitrogen 18 mg/dL (9-16); Carbon Dioxide 29 mmol/L (22-29); Chloride 105 mmol/L (96-108); Estimated Glomerular Filt Rate > 60; Glucose Random 93 mg/dL (60-115); Sodium 144 mmol/L (135-145); Total Protein 7.4 g/dL (6.5-8.0)
== END 2024-03-12 12:44 | disposition home or self-care (01) ==
LOC: HO.WFDLDS 12:43
PROVIDERS: Visit Provider Nurse Practitioner Family
DX: N18.31 Chronic kidney disease, stage 3a (principal)
CPT/HCPCS: 36415; 80053

== ENCOUNTER 2024-03-16 13:09 | Outpatient (REF) | payer MEDICARE, SELFPAY ==
--- NOTE | ~2024-03-16 | XR_ITS ---
EXAMINATION: Left tibia-fibula series CLINICAL INFORMATION: Pain in left leg COMPARISON: None. TECHNIQUE: 2 views of the left tibia-fibula FINDINGS: The bones and visualized joints and soft tissues are normal. XR/XR tibia fibula LT 2V IMPRESSION: Normal x-ray series of the left tibia and fibula. Electronically signed by: Jairo Sherman MD 03/22/2024 09:43 PM EDT RP
== END 2024-03-16 13:10 | disposition home or self-care (01) ==
LOC: HO.HMGCX 13:09
PROVIDERS: PCP Nurse Practitioner Family; Visit Provider Nurse Practitioner Family
DX: M79.605 Pain in left leg (principal)
CPT/HCPCS: 73590

== ENCOUNTER 2024-04-17 14:06 | Outpatient (AMB) | payer MEDICARE, SELFPAY ==
--- NOTE | 2024-04-17 14:13 | MHC.OFFVIS ---
Intake Visit Reasons: COMMUNITY OUTREACH SPECIALIST- Left calf pain Intake Note: Constanza is a 83 year old female who presents today as a new patient for a evolution of her left calf pain. Patient reports ongoing for a couple months and it has been getting worse. She mentions that her pain stays in the same area. Pain is worse when laying down, walking and using the stairs. Patient has tried taking Tylenol with no relief. Allergies No Known Allergies Allergy (Verified 04/17/24 14:16) HPI HPI COMMUNITY OUTREACH SPECIALIST- Left calf pain: Details: 83-year-old female who presents in the office today, as a new patient, for an evaluation of left calf pain. The patient was seen by PCP on 03/12/24 with the complaint of constant left lower extremity pain, located on the lateral aspect. Previously, she was referred to physical therapy with no improvement. She has tried Tylenol with no relief. Denies any injuries in the past. While in the office today, the patient reports pain ongoing for the past couple of months and has been worsening. She mentions that her pain is localized. Pain aggravates when lying down, ambulation and using the stairs. She has tried Tylenol with no relief. The patient has a medical history of diabetes mellitus, and stage 3a CKD. She also has a past medical history of sciatica, which was well resolved with physical therapy. [facility] Medical History (Updated 04/17/24 @ 15:17 by Kmoal Anderson) Urinary tract infection Hyperlipidemia HTN (hypertension) DM type 2 (diabetes mellitus, type 2) Diarrhea Surgical History Hx of appendectomy H/O: hysterectomy Family History Father No problems noted. Mother Hypertension Cancer Brother Cancer Brother Cancer Social History Housing: Condominium Patient Tobacco Use Status: Never used Tobacco e-Cigarette/Vaping Use: Never Used service: No Current occupational status: retired Cognitive needs: No Hearing needs: No Vision needs: Yes Review of Systems Const All systems reviewed & are unremarkable except as noted in HPI and below Physical Exam Const General: cooperative and no acute distress Orientation/consciousness: patient oriented x3 Resp Effort & Inspection: normal respiratory effort and able to speak in complete sentences Cardio Peripheral pulses: Peripheral pulses 2+ throughout Skin General skin exam: no rashes or lesions noted Neuro General: patient oriented x3 Extrem Other: Left lower extremity: Normal to inspection. No ecchymosis, or erythema. There is mild edema. No tenderness or increased sensitivity with palpation on overall anatomical landmarks including the area that the patient reports pain. Able to flex and extend the knee. Able to dorsiflex and plantarflex at the foot. Assessment & Plan Assessment & Plan (1) Pain of left calf: Code(s): M79.662 - Pain in left lower leg Category: Medical Plan Ms. Friend is a 83-year-old female who presents in the office today, as a new patient, for an evaluation of left calf pain. The patient was seen by PCP on 03/12/24 with the complaint of constant left lower extremity pain, located on the lateral aspect. Previously, she was referred to physical therapy with no improvement. She has tried Tylenol with no relief. Denies any injuries in the past. While in the office today, the patient reports pain ongoing for the past couple of months and has been worsening. She mentions that her pain is localized. Pain aggravates when lying down, ambulation and using the stairs. She has tried Tylenol with no relief. The patient has a medical history of diabetes mellitus, and stage 3a CKD. She also has a past medical history of sciatica, which was well resolved with physical therapy. The patient will be referred to Dr. Zapata for further evaluation and treatment of possibility of nerve pain in the left lower extremity. Follow-up will be with Orthopedics PRN, or sooner if needed. X-rays of the left tibia/fibula, obtained on 03/22/24, revealed: Normal x-ray series of the left tibia and fibula. US of the left lower extremity, obtained on 12/09/23, revealed: No DVT demonstrated in the left lower extremity. Patient Instructions: Scribed by Komal Anderson certified ophthalmic medical technician, for Talisha Walton PA-C on 04/17/24 at 2:24 pm EST. Coding Level of Care Code New Pt Level 3 (86847) Diagnoses Pain of left calf M79.662
== END 2024-04-17 14:50 | disposition home or self-care (01) ==
PROVIDERS: PCP Nurse Practitioner Family; Visit Provider Physician Assistant
DX: M79.662 Pain in left lower leg (principal); E11.9 Type 2 diabetes mellitus without complications
CPT/HCPCS: 99203

== ENCOUNTER → 2024-04-17 14:06 | Outpatient (BNVA) | payer MEDICARE, SELFPAY | PROVIDERS: PCP Nurse Practitioner Family; Visit Provider Physician Assistant | DX: M79.662 Pain in left lower leg (principal) | CPT/HCPCS: 99202 ==

== ENCOUNTER 2024-04-30 09:47 | Outpatient (REF) | payer MEDICARE, SELFPAY ==
--- NOTE | ~2024-04-30 | CT_ITS ---
EXAMINATION: CT ABDOMEN AND PELVIS WITH CONTRAST CLINICAL INFORMATION: Unspecified abdominal pain. COMPARISON: None available. TECHNIQUE: Multidetector volumetric images were obtained from the superior aspect of the liver through the pubic symphysis following administration 85 mL of Omnipaque 350 intravenous contrast. Sagittal and coronal reformatted images were obtained on the technologist's workstation. Oral contrast: No This CT examination was performed using dose optimization techniques as appropriate, variously including the following: *Automated exposure control *Adjustment of mA and/or kV according to patient size (this includes techniques or standardized protocols for targeted exams where dose is matched to indication/reason for exam; i.e. extremities or head) *Use of iterative reconstruction technique DLP: 175 mGy-cm FINDINGS: LUNG BASES: Lung bases demonstrate minor dependent atelectasis. There is a 5 mm groundglass nodule in the lingula, nonspecific. Heart size is normal. There are no effusions. There is a small hiatus hernia suspected. LIVER, GALLBLADDER, AND BILIARY TREE: The liver is normal in size, shape, and attenuation. No biliary ductal dilatation. There is a simple cyst in segment 7 measuring 1.3 cm. No masses. The gallbladder is unremarkable with no evidence of radiopaque gallstones, gallbladder wall thickening, or obvious pericholecystic inflammatory changes. PANCREAS: Mild fatty atrophy of the body. Otherwise normal. SPLEEN: Normal. Small associated splenule abutting the hilum. ADRENAL GLANDS: Unremarkable. KIDNEYS AND URETERS: The kidneys are normal in size, shape, and attenuation. No hydronephrosis, hydroureter, or calculi seen. No perinephric stranding. BLADDER: -Completely decompressed, limiting evaluation. -Mucosa is enhancing which may indicate cystitis or infection. GASTROINTESTINAL TRACT: -Extensive diverticulosis of the colon involving the descending and sigmoid regions. No inflammation or wall thickening. -There has been an appendectomy. -Small bowel is normal in caliber and course. -Stomach and duodenum appear normal. ABDOMINAL WALL: There are tiny bilateral inguinal fat-containing hernias. No additional abdominal wall abnormality. LYMPH NODES: Normal. VASCULAR: - Mild atheromatous changes of the aorta and iliac arteries. There is no aneurysm. -No venous thrombosis. PELVIC VISCERA: -Hysterectomy. No adnexal masses. No free fluid. OSSEOUS STRUCTURES: -No lytic or blastic suspicious bone lesions. There are degenerative changes throughout the spine and bilateral hip joints. Bone island in the right acetabulum. CT/CT abdomen pelvis w IV con IMPRESSION: 1. Decompressed urinary bladder with mildly thick-walled enhancing mucosa, findings suggestive of possible infectious or inflammatory cystitis. 2. Otherwise, no additional acute findings within the abdomen or pelvis. 3. 5 mm groundglass nodule in the lingula, optional [address] follow-up as per patient risk factors. 4. Additional ancillary findings as discussed in the body of the report. Electronically signed by: William Crump MD 05/18/2024 03:17 PM MAU
[2024-04-30] MEDS: iohexoL 350 MG/ML 100 ML INFUS..BTL IV (10:34)
[2024-05-02 09:51] LABS: GFR POC 60
== END 2024-04-30 09:48 | disposition home or self-care (01) ==
LOC: HO.CT 09:47
PROVIDERS: PCP Nurse Practitioner Family; Visit Provider Nurse Practitioner Family
DX: R10.9 Unspecified abdominal pain (principal); R10.2 Pelvic and perineal pain; K90.9 Intestinal malabsorption, unspecified; R19.7 Diarrhea, unspecified
CPT/HCPCS: 74177; 82565; Q9967

== ENCOUNTER → 2024-04-30 09:52 | Outpatient (BNV) | payer MEDICARE, SELFPAY | PROVIDERS: PCP Nurse Practitioner Family; Visit Provider Radiology Diagnostic Radiology | DX: R10.9 Unspecified abdominal pain (principal) | CPT/HCPCS: 74177 ==

== ENCOUNTER 2024-05-11 11:29 | Outpatient (AMB) | payer MEDICARE, SELFPAY ==
--- NOTE | 2024-05-11 11:31 | MHC.OFFVIS ---
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 Patient reports in October her calf started to hurt her. At first it was bearable but now she is unable to ambulate without assistance. She describes her pain as aching that is gradually worsening and radiating up and down the lateral aspect of her left leg. She thought this was sciatica and had 3 appointments of PT at [facility] in [facility] but the PT said it was not sciatica so she needed to get this checked out. She had tried Tylenol but found no relief. Before her calf pains her niece states when she lives in [place] she was actively walking everyday and since her symptoms she has not been able to be active and as independent. Denies previous injury, numbness and tingling. Allergies No Known Allergies Allergy (Verified 05/11/24 11:34) Medication List - Last Reconciled 05/11/24 by Bibiana Balderas MD atenolol 50 mg PO DAILY atorvastatin 80 mg PO DAILY levothyroxine (Synthroid) 100 mcg PO DAILY lidocaine 4% 1 appl topical TID PRN metformin 500 mg PO BID nitrofurantoin monohyd/m-cryst 100 mg (Macrobid) 100 mg PO Q12H 7 days valsartan 320 mg PO DAILY HPI Comments Details: History of diabetes type 2, hypertension, hyperlipidemia , recurrent UTIs, hypothyroidism, left-sided sciatica, CKD 3a. Since she moved from [place] in October, she has been complaining of left leg pain. She denies any inciting injuries. She denies any lower back pain. She points to distal 1/3 of left lower extremity as source of pain. She says she has chronic swelling of left leg. Pain has become severe enough that she is needing walker for ambulation, unable to walk around or condo or play golf. She is here with her niece who confirms that her functional level has declined since October. She also has another undiagnosed pain in her pelvis. They say that she has not been officially diagnosed with dementia but they have noticed beginning memory changes. [facility] Medical History Urinary tract infection Hyperlipidemia HTN (hypertension) DM type 2 (diabetes mellitus, type 2) Diarrhea Surgical History Hx of appendectomy H/O: hysterectomy Family History Father No problems noted. Mother Hypertension Cancer Brother Cancer Brother Cancer Social History Housing: Condominium Patient Tobacco Use Status: Never used Tobacco e-Cigarette/Vaping Use: Never Used service: No Current occupational status: retired Cognitive needs: No Hearing needs: No Vision needs: Yes Review of Systems Const All systems reviewed & are unremarkable except as noted in HPI and below Physical Exam Constitutional: Patient appears to be in no acute distress, well nourished and well developed. MSK: Although she says the pain is lateral leg, the tenderness is only in the medial aspect and also on left medial malleolus. There is some swelling around left medial malleolus. No redness or warmth. No ankle instability. No calf tenderness. Gait appeared normal but needed walker. No footdrop. Results Reviewed Results Reviewed: Ordering Physician: Ivette Bynum Date of Service: 03/16/24 Procedure(s): XR tibia fibula LT 2V Accession Number(s): [id number] cc: Ivette Bynum~ EXAMINATION: Left tibia-fibula series CLINICAL INFORMATION: Pain in left leg COMPARISON: None. TECHNIQUE: 2 views of the left tibia-fibula FINDINGS: The bones and visualized joints and soft tissues are normal. XR/XR tibia fibula LT 2V IMPRESSION: Normal x-ray series of the left tibia and fibula. Electronically signed by: Jairo Sherman MD 03/22/2024 09:43 PM EDT RP Ordering Physician: Amna Beckham MD Date of Service: 12/09/23 Procedure(s): US venous duplex LE LT Accession Number(s): [id number] cc: mAna Beckham MD~ EXAMINATION: US VENOUS ULTRASOUND WITH DOPPLER LOWER EXTREMITY, LEFT CLINICAL INFORMATION: Pain COMPARISON: None available. TECHNIQUE: Ultrasound of the deep veins is performed from the hip to the calf with compression sonography and color and pulse Doppler assessment. Spectral analysis with color-flow imaging is performed. FINDINGS: There is normal venous compression and respiratory variation and augmented flow. The visualized common femoral vein, superficial femoral vein, profunda femoral vein, popliteal vein, and the trifurcation region shows no evidence of deep venous thrombosis. There is no significant popliteal fossa cyst. US/US venous duplex LE LT IMPRESSION: No DVT demonstrated in the left lower extremity. I reviewed records from the following: PCP Ortho Assessment & Plan Assessment & Plan (1) Pain in left lower leg: Code(s): M79.662 - Pain in left lower leg Category: Medical (2) Left ankle sprain: Code(s): S93.402A - Sprain of unspecified ligament of left ankle, initial encounter Category: Medical Qualifiers: Encounter type: initial encounter Involved ligament of ankle: unspecified ligament Qualified Code(s): S93.402A - Sprain of unspecified ligament of left ankle, initial encounter Plan She had been complaining of left lateral leg pain but on exam today, there is no tenderness over lateral aspect. She has tenderness on left medial lower leg instead and left medial ankle, with notalble ankle swelling. No ankle instability on exam. Undiagnosed etiology. US negative for DVT. Tib/Fib xray normal. She has done PT 3 sessions without relief. This has affected her functional level, unable to walk or golf due to pain. It would be reasonable to obtain further imaging such as MRI. She can continue to use lidocaine gel as needed. Sent prescription for diclofenac gel. They asked whether EMG/NCS should be done. She denies any numbness. She has history of DM but denies history of neuropathy. With that, we will hold off on EMG/NCS until MRI is done/reviewed. They also asked whether emotional factors could cause pain. While it is possible, we would still do our best to rule out organic causes. Assessment and plan discussed with patient, and patient was agreeable. All questions were answered thoroughly. Follow up after MRI. Bibiana Balderas MD, JIMI Board Certified, [place] Board [employer] and Rehabilitation (ABPMR) Board Certified, [place] Board [employer] Electrodiagnostic Medicine (ABEM) Orders: Orders MR lower leg LT wo con Today M79.662 - Pain in left lower leg, S93.402A - Sprain of unspecified ligament of left ankle, initial encounter Medications: New diclofenac sodium 1% apply to left leg twice a day as needed 4 grams topical QID 100 grams 0RF Coding Level of Care Code New Pt Level 4 (07330) Diagnoses Pain in left lower leg M79.662 Sprain of left ankle, unspecified ligament, initial encounter S93.402A Encounter type: initial encounter Involved ligament of ankle: unspecified ligament
== END 2024-05-11 12:01 | disposition home or self-care (01) ==
PROVIDERS: PCP Nurse Practitioner Family; Visit Provider Physical Medicine & Rehabilitation
DX: M79.662 Pain in left lower leg (principal); S93.402A Sprain of unspecified ligament of left ankle, initial encounter
CPT/HCPCS: 99203

== ENCOUNTER → 2024-05-11 11:29 | Outpatient (BNVA) | payer MEDICARE, SELFPAY | PROVIDERS: PCP Nurse Practitioner Family; Visit Provider Physical Medicine & Rehabilitation | DX: S93.402A Sprain of unspecified ligament of left ankle, initial encounter (principal); M79.662 Pain in left lower leg | CPT/HCPCS: 99202 ==

== ENCOUNTER 2024-05-21 13:59 | Outpatient (AMB) | payer MEDICARE, SELFPAY ==
--- NOTE | 2024-05-21 16:08 | A.OFFPC_ITS ---
Intake Visit Reasons: telehealth fu Allergies No Known Allergies Allergy (Verified 05/21/24 16:16) Medication List - Last Reconciled 05/21/24 by Ivette Bynum [facility]- atenolol 50 mg PO DAILY atorvastatin 80 mg PO DAILY diclofenac sodium 1% 4 grams topical QID levothyroxine (Synthroid) 100 mcg PO DAILY lidocaine 4% 1 appl topical TID PRN metformin 500 mg PO BID valsartan 320 mg PO DAILY Tobacco use date assessed: 12/09/23 Dental Screening Dental Screen Date: 12/09/23 HPI HPI Comments History of Present Illness Details 84-year-old female with diabetes type 2, hypertension, hyperlipidemia , recurrent UTIs, hypothyroidism, left-sided sciatica, CKD 3a, Dementia status post hysterectomy 1987, thyroid removed 2012, appendectomy Specialist: ObGyn Dr Velia Torres [facility] PT History of Present Illness The patient is an 84-year-old female presenting with two primary issues: diarrhea and pelvic pain. The diarrhea has been ongoing, initially exacerbated by Aricept (donepezil) for memory issues, which the patient has since discontinued. The diarrhea persists but is somewhat improved since stopping the medication. The pelvic pain, described as severe, has not been alleviated by topical treatment. Imaging has shown significant diverticulosis in the sigmoid colon, contributing to diarrhea and possibly pelvic pain. Additionally, bladder wall thickening was noted with no evidence of infection, raising suspicion for interstitial cystitis. Urination frequency is also increased, suggesting irritation or inflammation consistent with this diagnosis. Previously seen by a air pollution analyst without resolution of symptoms. Review of Systems - Gastrointestinal: Reports diarrhea - Genitourinary: Reports increased urina ry frequency - Musculoskeletal/Neurologic: Reports se jasmin pelvic pain - General: Denies feeling unwell despite frequent diarrhea Plan - For diarrhea, suspect metformin may be contributing. Plan to change to an enteric-coated form to reduce gastrointestinal side effects. - For pelvic pain and suspected intersti tial cystitis, refer to urology for further evaluation and management options, including confirmation of diagnosis and additional treatment recommendations. - Monitor and potentially manage diverti culosis with dietary fiber suppleme ntation such as Metamucil or Benafiber if symptom changes require further intervention. Patient was informed and verbally consented to the use of an ambient scribe for clinic note documentation during this visit. Discussion Notes During the visit, we thoroughly discussed the likely cause of the patient's ongoing diarrhea and pelvic pain. I suspect interstitial cystitis as the underlying cause of the pelvic pain due to bladder wall changes and urinary symptoms. Management options were explored, noting limited treatments available for interstitial cystitis, but a urology referral for further evaluation was agreed upon. Regarding diarrhea, I posited the possibility of metformin contributing and suggested a switch to an enteric-coated formulation to mitigate gastrointestinal distress. We reviewed the management plan, including dietary fiber supplementation if required, and set a follow-up visit for July, although the patient may reach out sooner if necessary. Patient Instructions - Continue current medications and stop Aricept. - Start the enteric-coated formulation o f metformin. - Follow the referral to urology for fur ther investigation of pelvic pain. - Monitor symptoms and introduce fiber s upplementation as needed for diverticulosis. - Contact my office with any new or wors ening symptoms before the scheduled follow-up in July. - Educate on potential lifestyle adaptat ions to manage symptoms more effectively. This note is constructed using voice recognition software. While every effort has been made to ensure accuracy in pricing specialist, still errors may have been included Sometimes, these errors may affect the content or meaning of the given sentence . Total time spent caring for the patient today was 20 minutes. This includes time spent before the visit reviewing the chart, time spent during the visit, and time spent after the visit on documentation PFSH Medical History Urinary tract infection Hyperlipidemia HTN (hypertension) DM type 2 (diabetes mellitus, type 2) Diarrhea Surgical History Hx of appendectomy H/O: hysterectomy Family History Father No problems noted. Mother Hypertension Cancer Brother Cancer Brother Cancer Social History Housing: Condominium Patient Tobacco Use Status: Never used Tobacco e-Cigarette/Vaping Use: Never Used service: No Current occupational status: retired Cognitive needs: No Hearing needs: No Vision needs: Yes Questionnaire Thrive Questionnaire Date Thrive assessed: 12/09/23 ROBBY-7 AMB Questionnaire ROBBY-7 Date ROBBY - 7 assessed: 12/09/23 Source: Developed by Drs. Tremayne Gomez, Malu Muro, Mj Taylor and colleagues, with an educational viky from [employer]. Physical exam (Primary Care) Tobacco/Smoking Status: Tobacco use Status Tobacco use date assessed 12/09/23 03/12/24 11:54 Patient Tobacco Use Status Never used Tobacco 03/12/24 11:54 e-Cigarette/Vaping Use Never Used 03/12/24 11:54 Thrive Assessment: Date of Thrive Assessment Date Thrive assessed 12/09/23 03/12/24 11:54 Telehealth Telehealth Telehealth Platform: [employer] Location of provider rendering services: practice address Location of patient: address on file Patient Identification confirmed using: Name, : Yes Telehealth method: voice only Patient verbally consented to treatment: Yes Patient verbally consented to billing insurance company: Yes Patient informed of any privacy concerns related to visit: Yes Minutes spent on Phone/Video with Pt.: 10 Results Reviewed Results Reviewed: [place] [id number] CT Scan Report Signed Patient: Constanza Friend MR#: [id number] : 1940 Acct:[id number] Age/Sex: 83 / F ADM Date: 04/30/24 Loc: HO.CT Attending Dr: Ivette CID Ordering Physician: Ivette Bynum Date of Service: 04/30/24 Procedure(s): CT abdomen pelvis w IV con Accession Number(s): [id number] cc: Ivette Bynum~ EXAMINATION: CT ABDOMEN AND PELVIS WITH CONTRAST CLINICAL INFORMATION: Unspecified abdominal pain. COMPARISON: None available. TECHNIQUE: Multidetector volumetric images were obtained from the superior aspect of the liver through the pubic symphysis following administration 85 mL of Omnipaque 350 intravenous contrast. Sagittal and coronal reformatted images were obtained on the technologist's workstation. Oral contrast: No This CT examination was performed using dose optimization techniques as appropriate, variously including the following: *Automated exposure control *Adjustment of mA and/or kV according to patient size (this includes techniques or standardized protocols for targeted exams where dose is matched to indication/reason for exam; i.e. extremities or head) *Use of iterative reconstruction technique DLP: 175 mGy-cm FINDINGS: LUNG BASES: Lung bases demonstrate minor dependent atelectasis. There is a 5 mm groundglass nodule in the lingula, nonspecific. Heart size is normal. There are no effusions. There is a small hiatus hernia suspected. LIVER, GALLBLADDER, AND BILIARY TREE: The liver is normal in size, shape, and attenuation. No biliary ductal dilatation. There is a simple cyst in segment 7 measuring 1.3 cm. No masses. The gallbladder is unremarkable with no evidence of radiopaque gallstones, gallbladder wall thickening, or obvious pericholecystic inflammatory changes. PANCREAS: Mild fatty atrophy of the body. Otherwise normal. SPLEEN: Normal. Small associated splenule abutting the hilum. ADRENAL GLANDS: Unremarkable. KIDNEYS AND URETERS: The kidneys are normal in size, shape, and attenuation. No hydronephrosis, hydroureter, or calculi seen. No perinephric stranding. BLADDER: -Completely decompressed, limiting evaluation. -Mucosa is enhancing which may indicate cystitis or infection. GASTROINTESTINAL TRACT: -Extensive diverticulosis of the colon involving the descending and sigmoid regions. No inflammation or wall thickening. -There has been an appendectomy. -Small bowel is normal in caliber and course. -Stomach and duodenum appear normal. ABDOMINAL WALL: There are tiny bilateral inguinal fat-containing hernias. No additional abdominal wall abnormality. LYMPH NODES: Normal. VASCULAR: - Mild atheromatous changes of the aorta and iliac arteries. There is no aneurysm. -No venous thrombosis. PELVIC VISCERA: -Hysterectomy. No adnexal masses. No free fluid. OSSEOUS STRUCTURES: -No lytic or blastic suspicious bone lesions. There are degenerative changes throughout the spine and bilateral hip joints. Bone island in the right acetabulum. CT/CT abdomen pelvis w IV con IMPRESSION: 1. Decompressed urinary bladder with mildly thick-walled enhancing mucosa, findings suggestive of possible infectious or inflammatory cystitis. 2. Otherwise, no additional acute findings within the abdomen or pelvis. 3. 5 mm groundglass nodule in the lingula, optional [address] follow-up as per patient risk factors. 4. Additional ancillary findings as discussed in the body of the report. Electronically signed by: William Crump MD 05/18/2024 03:17 PM EST RP Dictated By: William Crump MD Signed By: <Electronically signed by William Crump MD in OV> 05/18/24 1517 DD/ 0954 TD/TT: 04/30/24 1034 Box Car Washer: Coding Level of Care Code Tele Est Pt Level 2 (21004) Complex EM visit Add On G2211 Diagnoses Interstitial cystitis N30.10 Diarrhea due to malabsorption K90.9; R19.7 Diarrhea type: due to malabsorption Assessment & Plan Assessment & Plan (1) Interstitial cystitis: Code(s): N30.10 - Interstitial cystitis (chronic) without hematuria Category: Medical (2) Diarrhea: Code(s): R19.7 - Diarrhea, unspecified Category: Medical Qualifiers: Diarrhea type: due to malabsorption Qualified Code(s): K90.9 - Intestinal malabsorption, unspecified; R19.7 - Diarrhea, unspecified Plan . Orders: Referrals Urology Referral N30.10 - Interstitial cystitis (chronic) without hematuria Medications: New metformin ER 500 mg PO BID 90 days 180 tabs 2RF
== END 2024-05-21 16:27 | disposition home or self-care (01) ==
LOC: HO.HMCFM 13:59
PROVIDERS: PCP Nurse Practitioner Family; Visit Provider Nurse Practitioner Family
DX: N30.10 Interstitial cystitis (chronic) without hematuria (principal); K90.9 Intestinal malabsorption, unspecified; R19.7 Diarrhea, unspecified

== ENCOUNTER → 2024-05-21 13:59 | Outpatient (BNVA) | payer MEDICARE, SELFPAY | PROVIDERS: PCP Nurse Practitioner Family; Visit Provider Nurse Practitioner Family ==

== ENCOUNTER 2024-06-11 10:01 | Outpatient (REF) | payer MEDICARE, SELFPAY | END 2024-06-11 10:02 | disposition home or self-care (01) | LOC: HO.MRI 10:01 | PROVIDERS: PCP Nurse Practitioner Family; Visit Provider Physical Medicine & Rehabilitation | DX: M79.662 Pain in left lower leg (principal); S93.402A Sprain of unspecified ligament of left ankle, initial encounter | CPT/HCPCS: 73718 ==

== ENCOUNTER 2024-07-09 10:17 | Outpatient (AMB) | payer MEDICARE, SELFPAY ==
--- NOTE | 2024-07-09 10:34 | AM.OFFVISMDC ---
Intake Vital Signs 07/09/24 10:43 Height 5 ft 6 in Weight 154 lb 4 oz BMI 24.9 BP 144/78 H Blood Pressure Location Rt brachial Position Sitting Respiration 14 Pulse 78 Pulse Source Pulse Oximeter Temp 97.4 F Temp Source Oral Pulse Oximetry (%) 95 Oxygen Delivery Method Room Air Intake Visit Reasons: 3-4 months 30 mi routine visit-Medical PRE-OP Intake Note: awv and preop visit Communications Tower Climber Required: No Allergies No Known Allergies Allergy (Verified 07/09/24 11:08) Medication List - Last Reconciled 07/09/24 by Ivette Bynum, CLOTH CUTTER- atenolol 25 mg (1/2 x 50 mg) PO DAILY 90 days atorvastatin 80 mg PO DAILY diclofenac sodium 1% 4 grams topical QID levothyroxine (Synthroid) 100 mcg PO DAILY lidocaine 4% 1 appl topical TID PRN metformin ER 500 mg PO BID 90 days valsartan 320 mg PO DAILY Do you need a note to return to daycare/school/sports/work: No HPI HPI Comments History of Present Illness Details 83-year-old female with diabetes type 2, hypertension, hyperlipidemia , recurrent UTIs, hypothyroidism, left-sided sciatica, CKD 3a, Dementia, LBBB status post hysterectomy 1987, thyroid removed 2012, appendectomy SurgHx: Y FHx: Y SocHx: Y Health Maintenance: See scanned preventative medicine assessment with personalized health plan and screening schedule. Colon: declined Mammo declined DEXA declined PAP aged out Vaccines: Flu shot today, tdap in the last 10 years. AAA screen: NA EKG: done today shows LBBB. SHe is asx. Specialist/ [place] of Care: ObGyn Dr Velia Torres [facility] PT Physiatry Consults reviewed 05/2024 Physiatry - plan for MRI L leg Here today for AWV. The Medicare Annual Wellness Visit (AWV) is a yearly appointment with a health professional to identify health risks and help reduce them and to create or update a personalized prevention plan. During a Medicare AWV, health professionals should also review any current opioid prescriptions, detect any cognitive impairment, and establish or update medical and family history. Visual Acuity: Bal[place] Hearing Screening: normal w/o aids ACP: HCP Y, MOLST/Living will: pending Dietary/Nutrition/Exercise Edu provided: Y diabetes type 2, hypertension, hyperlipidemia , hypothyroidism, CKD 3a, Dementia stable on current medications. During the course of the visit the patient was educated and counseled about appropriate screening and preventative services. Patient instructions were provided to the patient in written or electronic format. I have reviewed and verified the above information. Problem: The patient is an 84-year-old female presenting with an upper respiratory infection, manifesting as a cough, runny nose, sore throat, and a 10-day duration without fever. She has been using [id number] DayQuil for symptom management with partial relief. The patient also complains of persistent left leg pain for which previous imaging showed normal results. An MRI indicated inflammation in the quadriceps muscle. She reports discomfort in her pelvic region and suspects interstitial cystitis, awaiting a urology consultation. There are recent changes in her cognitive function, including confusion and difficulty recalling recent information and names. Sleep disturbances are noted, characterized by difficulty falling and staying asleep. The patient reports a significantly reduced appetite over the past week, limited to only consuming toast. Additionally, urinary frequency is described with minimal output upon awakening at night. ROS - Respiratory: Reports productive cough. - Ears, Nose, and Throat: Reports runny nose and sore throat. - Musculoskeletal: Reports persistent left leg pain. - Genitourinary: Reports urinary frequency with minimal output; pain in private area. - Neurological: Reports sleep disturbances and memory issues. Results - Laboratory: Hemoglobin A1c recorded as 5.6%. - Imaging: Previous MRI indicating inflammation in the quadriceps muscle of the left leg. Exam: Awake alert, NAD, pleasant, accompanied by Areli moraes. Amb w/ slow gait using walker TM intact and clear bilat Nares with clear drainage, turbinates wnl, no sinus tenderness Pharynx WNL RRR LS CTAB, dry cough noted during exam w/o distress Nonpitting edema BLE, + varicose veins,decreased PP bilat, skin intact, pain w/ palpation generally speaking to left lower leg. no focal bony tenderness. Full ROM of the ankle that does not worsen the pain. Neuro: Mildly forgetful, defers to niece for fine details; uncertain about time/date. Plan: - Begin azithromycin as prescribed, one tablet daily for five days. - Consider purchasing melatonin (1 to 3 mg) [id number] and use as directed for sleep. - Schedule and attend follow-up appointments with office service coordinator and urologist as arranged. - Maintain current activity level and resume normal dietary intake as able. - Monitor memory and cognitive changes; keep a log if necessary. - Influenza vaccination administered today. - Return for routine follow-up before surgery planned for September. - Seek medical attention if symptoms worsen or new symptoms develop. An additional 30 minutes was spent addressing the problem(s) noted at todays visit. This includes time spent before the visit reviewing the chart, time spent during the visit, and time spent after the visit on documentation [facility] Medical History Urinary tract infection Hyperlipidemia HTN (hypertension) DM type 2 (diabetes mellitus, type 2) Diarrhea Surgical History Hx of appendectomy H/O: hysterectomy Family History Father No problems noted. Mother Hypertension Cancer Brother Cancer Brother Cancer Social History Housing: Condominium Patient Tobacco Use Status: Never used Tobacco e-Cigarette/Vaping Use: Never Used service: No Current occupational status: retired Cognitive needs: No Hearing needs: No Vision needs: Yes Questionnaire Medicare Wellness Checkup What is your age?: 80 or older What gender do you identify with?: female During the past 4 weeks, how much have you been bothered by emotional problems such as feeling anxious, depressed, irritable, sad or downhearted, and blue?: not at all During the past 4 weeks, has your physical & emotional health limited your social activities with family, friends, neighbors, or groups?: not at all During the past 4 weeks, how much bodily pain have you generally had?: mild pain During the past 4 weeks, was someone available to help you if you needed & wanted help?: yes, as much as I wanted During the past 4 weeks, what was the hardest physical activity you could do for at least 2 minutes?: light Can you get to places out of walking distance without help? (For eg., can you travel alone on buses, taxis or drive your car?): No Can you go shopping for groceries or clothes without someone's help?: No Can you prepare your own meals?: Yes Can you do your housework without help?: Yes Because of any health problems, do you need the help of another person with your personal care needs such as eating, bathing, dressing or getting around the house?: No Can you handle your own money without help?: Yes During the past 4 weeks, how would you rate your health in general?: very good During the past 4 weeks how have things been going for you?: pretty well Are you having difficulties driving your car?: not applicable, I don't use a car Do you always fasten your seat belt when you are in a car?: yes, usually During past 4 weeks, have you been bothered by the following: never: Falling or dizzy when standing up, Sexual problems?, Trouble eating well?, Teeth or denture problems?, Problems using the telephone? and Tiredness or fatigue? Have you fallen 2 or more times in the past year?: No Are you afraid of falling?: Yes Are you a smoker?: no During the past 4 weeks, how many drinks of wine, beer, or other alcoholic beverages did you have?: no alcohol at all Do you exercise for about 20 minutes 3 or more times a week?: no, I usually do not exercise this much Have you been given information to help with the following?: no: Hazards in your house that might hurt you? and no: Keeping track of your medications? How often do you have trouble taking medicines the way you have been told to take them?: I always take medicine as prescribed How confident are you that you can control & manage most of your health problems?: very confident What is your race?: White Activity of Daily Living Bathing - sponge bath, tub bath or shower: receives no assistance (gets in/out by self, if usual bathing means Dressing - getting clothes from closets & drawers, including inner/outer garments & fasteners.: gets clothes & gets completely dressed without help Toileting - going to the 'toilet room' for urine/bowel elimination & cleaning self/arranging clothes: goes to toilet room, cleans self, arranges clothes without help Transfer: moves in & out of bed and chair without help (may use support object) Continence: controls urination/bowel movements completely by self Feeding: feeds self without help Total Score: 0 Information obtained from: patient Using telephone: independent Traveling: needs assistance Shopping: needs assistance Preparing meals: independent Housework: independent Taking medicine: independent Managing money: independent PHQ-9 Over the last 2 weeks, how often have you been bothered by any of the following problems? 1. Little interest or pleasure in doing things: not at all 2. Feeling down, depressed, or hopeless: not at all 3. Trouble falling or staying asleep, or sleeping too much: several days 4. Feeling tired or having little energy: more than half the days 5. Poor appetite or overeating: several days 6. Feeling bad about yourself - or that you are a failure or have let yourself or your family down: not at all 7. Trouble concentrating on things, such as reading the newspaper or watching television: not at all 8. Moving or speaking so slowly that other people could have noticed. Or the opposite - being so fidgety or restless that you have been moving around a lot more than usual: not at all 9. Thoughts that you would be better off or of hurting yourself in some way: not at all Total score: 4 Depression Screening Interpretation: Negative Depression Screening Done: Yes 06046 - PHQ-9 Billing: Yes Source: Developed by Drs. Tremayne Gomez, Malu Muro, Mj Taylor and colleagues, with an educational viky from [employer]. Physical Exam Vital Signs: Last Vital Signs Temp 97.4 F 07/09/24 10:43 Pulse 78 07/09/24 10:43 Resp 14 07/09/24 10:43 BP 144/78 H 07/09/24 10:43 Pulse Ox 95 07/09/24 10:43 Oxygen Delivery Method Room Air 07/09/24 10:43 BMI result Body Mass Index 24.9 Office Procedures EKG 40115-[id number], Complete Flu Questionnaire Does the patient have a severe egg allergy?: No Does the patient have severe life threatening allergies?: No Does the patient have a fever or illness today?: No Has the patient ever had Guillain-[place] Syndrome?: No Has the patient ever had any past reaction to a flu shot?: No Vision Screening Right Eye: 20/100 Left Eye: 20/70 Bilateral: 20/40 Corrected: Pass (with glasses) 65808 - Vision Screening Results AMB Hemoglobin A1c AMB Hemoglobin A1c 5.6 % Last Edit by Claude Hagen MA on 07/09/24 11:11 Immunizations Fluarix Triv 3317-3052 (PF) 45 mcg (15 mcg x 3)/0.5 mL IM syringe Performing Provider: JOSE ROBERTO Stevenson Performing Location: [facility] [place] Administered by: Fariha Mcgill RN on 07/09/24 11:59 Dose Route Admin Location Dispensed Lot Number Expiration Date NDC Baggage Clerk 0.5 mL IM Right Deltoid 0.5 mL [id number] 12/31/24 [id number] [employer] VIS Given Date VIS Provided VIS Publication Date 07/09/24 Single Vaccine 21 Eligibility Eligibility Date Funding Source Not VFC Eligible 07/09/24 Private Results Reviewed Results Reviewed: Laboratory Last Values Hgb A1c (Clinic) 5.6 % (4.0-6.0) 07/09/24 10:53 Assessment & Plan Assessment & Plan (1) Encounter for subsequent annual wellness visit (AWV) in Medicare patient: Code(s): Z00.00 - Encounter for general adult medical examination without abnormal findings (2) HTN (hypertension): Code(s): I10 - Essential (primary) hypertension Qualifiers: Hypertension type: primary hypertension Qualified Code(s): I10 - Essential (primary) hypertension (3) Hyperlipidemia: Code(s): E78.5 - Hyperlipidemia, unspecified Qualifiers: Hyperlipidemia type: mixed hyperlipidemia Qualified Code(s): E78.2 - Mixed hyperlipidemia (4) DM type 2 (diabetes mellitus, type 2): Code(s): E11.9 - Type 2 diabetes mellitus without complications Qualifiers: Chronic kidney disease stage: stage 3 (moderate) Chronic kidney disease stage 3 subtype: stage 3a (GFR 45-59) Diabetes mellitus complication detail: with chronic kidney disease Diabetes mellitus complication status: with kidney complications Diabetes mellitus keno terminal operator insulin use: without keno terminal operator use Qualified Code(s): E11.22 - Type 2 diabetes mellitus with diabetic chronic kidney disease; N18.31 - Chronic kidney disease, stage 3a (5) LBBB (left bundle branch block): Code(s): I44.7 - Left bundle-branch block, unspecified (6) Hypothyroid: Code(s): E03.9 - Hypothyroidism, unspecified Qualifiers: Hypothyroidism type: postoperative Qualified Code(s): E89.0 - Postprocedural hypothyroidism (7) Interstitial cystitis: Code(s): N30.10 - Interstitial cystitis (chronic) without hematuria (8) CKD stage 3a, GFR 45-59 ml/min: Code(s): N18.31 - Chronic kidney disease, stage 3a (9) Dementia: Code(s): F03.90 - Unspecified dementia, unspecified severity, without behavioral disturbance, psychotic disturbance, mood disturbance, and anxiety Qualifiers: Dementia behavioral or psychological symptom: without behavioral, psychotic, or mood disturbance or anxiety Dementia severity: mild Dementia type: unspecified type Qualified Code(s): F03.A0 - Unspecified dementia, mild, without behavioral disturbance, psychotic disturbance, mood disturbance, and anxiety (10) Influenza vaccination administered at current visit: Code(s): Z23 - Encounter for immunization (11) Mammogram declined: Code(s): Z53.20 - Procedure and treatment not carried out because of patient's decision for unspecified reasons (12) Colon cancer screening declined: Code(s): Z53.20 - Procedure and treatment not carried out because of patient's decision for unspecified reasons (13) Bronchitis: Code(s): J40 - Bronchitis, not specified as acute or chronic Plan . Orders: Orders AMB Hemoglobin A1c 07/09/24 Z13.6 - Encounter for screening for cardiovascular disorders, Z13.9 - Encounter for screening, unspecified Comprehensive [place]. Panel Fast 07/09/24 E11.22 - Type 2 diabetes mellitus with diabetic chronic kidney disease, E78.2 - Mixed hyperlipidemia, I10 - Essential (primary) hypertension, N18.31 - Chronic kidney disease, stage 3a Microalbumin, Random (w Creat) 07/09/24 E11.22 - Type 2 diabetes mellitus with diabetic chronic kidney disease, E78.2 - Mixed hyperlipidemia, I10 - Essential (primary) hypertension, N18.31 - Chronic kidney disease, stage 3a TSH reflex Free T4 07/09/24 E11.22 - Type 2 diabetes mellitus with diabetic chronic kidney disease, E78.2 - Mixed hyperlipidemia, I10 - Essential (primary) hypertension, N18.31 - Chronic kidney disease, stage 3a AMB EKG-In Office 07/09/24 Z13.6 - Encounter for screening for cardiovascular disorders Lipid Panel 07/09/24 E11.22 - Type 2 diabetes mellitus with diabetic chronic kidney disease, E78.2 - Mixed hyperlipidemia, I10 - Essential (primary) hypertension, N18.31 - Chronic kidney disease, stage 3a Vitamin B12 and Folate 07/09/24 E11.22 - Type 2 diabetes mellitus with diabetic chronic kidney disease, E78.2 - Mixed hyperlipidemia, I10 - Essential (primary) hypertension, N18.31 - Chronic kidney disease, stage 3a Vitamin D 25-OH Total 07/09/24 E11.22 - Type 2 diabetes mellitus with diabetic chronic kidney disease, E78.2 - Mixed hyperlipidemia, I10 - Essential (primary) hypertension, N18.31 - Chronic kidney disease, stage 3a Influenza [id number] Immunization 07/09/24 Z23 - Encounter for immunization Medications: New melatonin 3 mg PO BEDTIME PRN 90 tabs 2RF sleep azithromycin For 250 mg dose pack: take 500 mg today (day 1), then 250 mg for 4 days (days 2-5) PO 6 tabs 0RF 5 days Quality Reporting (2019) Adult ([facility] 138/08/25/68) Smoking risk assessment performed?: Yes Patient Tobacco Use Status: Never used Tobacco Depression screening performed: Yes Screen Results: Yes Negative screen Systolic BP not done?: No Diastolic BP not done?: No BMI screening not done: No BMI High - Follow Up: Yes High-plan (life style ) Sexual Activity Screening ([facility] 153) Sexually active?: No Immunizations ([facility] 147, 117) Annual Influenza Vaccine: Yes Measles Antibody Test: No Mumps Antibody Test: No Rubella Antibody Test: No Varicella Antibody Test: No Anti Hepatitis A IgG Antigen test: No Anti Hepatitis B Virus Surface Ab test: No Diabetes ([facility] 131/134/142) Date of last retinal or dilated eye exam: 05/08/24 Macular exam performed: Yes (Dr Leung) Fall Risk Screening ([facility] 139) Last assessed Fall Risk: 07/09/24 Fall risk assessment: No Falls in past year Dementia Assessment ([facility] 149) Cognitive assessment recorded: Yes Assessment of cognition with standardized tool: Yes (12/29 on 6 CIT ) Depression/Bipolar (159/160/161/177) PHQ-9: Total score: 4 Ophthalmol:Cataracts Visual Acuity (133) Visual acuity exam performed: Yes (see results ) Coding Level of Care Code Medicare Subsequent (G0439) Est Pt Level 4 (54186) Diagnoses Encounter for subsequent annual wellness visit (AWV) in Medicare patient Z00.00 Primary hypertension I10 Hypertension type: primary hypertension Mixed hyperlipidemia E78.2 Hyperlipidemia type: mixed hyperlipidemia Type 2 diabetes mellitus with stage 3a chronic kidney disease, without long-term current use of insulin E11.22; N18.31 Chronic kidney disease stage: stage 3 (moderate) Chronic kidney disease stage 3 subtype: stage 3a (GFR 45-59) Diabetes mellitus complication detail: with chronic kidney disease Diabetes mellitus complication status: with kidney complications Diabetes mellitus keno terminal operator insulin use: without long-term use LBBB (left bundle branch block) I44.7 Postoperative hypothyroidism E89.0 Hypothyroidism type: postoperative Interstitial cystitis N30.10 CKD stage 3a, GFR 45-59 ml/min N18.31 Mild dementia without behavioral disturbance, psychotic disturbance, mood disturbance, or anxiety, unspecified dementia type F03.A0 Dementia behavioral or psychological symptom: without behavioral, psychotic, or mood disturbance or anxiety Dementia severity: mild Dementia type: unspecified type Influenza vaccination administered at current visit Z23 Mammogram declined Z53.20 Colon cancer screening declined Z53.20 Bronchitis J40 CPT Codes Advance Care Planning - Time spent: 1-15 minutes, not on file ([id number]) EKG - CPT: 93013-[id number], Complete ([id number]) Vision Screening - Vision Screenin - Vision Screening ([id number]) Additional Codes PHQ-9 - 47530 - PHQ-9 Billing: Yes ([id number]) Advance Care Planning Advance Care Planning discussion: Exists, not on file Date of discussion: 07/09/24 Who was present: self and areli Forms completed: Health Care Proxy, Comfort care/DNR and Living will Time spent: 1-15 minutes, not on file Actual minutes spent: 5
[2024-07-09 10:43] VITALS: BP 144/78; PULSE 78; RESP 14; TEMP 36.3; O2SAT 95; BMI 24.9
== END 2024-07-09 12:01 | disposition home or self-care (01) ==
PROVIDERS: PCP Nurse Practitioner Family; Visit Provider Nurse Practitioner Family
DX: Z13.9 Encounter for screening, unspecified (principal); Z13.6 Encounter for screening for cardiovascular disorders; Z23 Encounter for immunization; E11.9 Type 2 diabetes mellitus without complications

== ENCOUNTER → 2024-07-09 10:17 | Outpatient (BNVA) | payer MEDICARE, SELFPAY | PROVIDERS: PCP Nurse Practitioner Family; Visit Provider Nurse Practitioner Family | DX: Z00.00 Encounter for general adult medical examination without abnormal findings (principal); I12.9 Hypertensive chronic kidney disease with stage 1 through stage 4 chronic kidney disease, or unspecified chronic kidney disease; E78.5 Hyperlipidemia, unspecified; E03.9 Hypothyroidism, unspecified; E11.22 Type 2 diabetes mellitus with diabetic chronic kidney disease; N18.31 Chronic kidney disease, stage 3a; I44.7 Left bundle-branch block, unspecified; E78.2 Mixed hyperlipidemia; E89.0 Postprocedural hypothyroidism; N30.10 Interstitial cystitis (chronic) without hematuria; F03.A0 Unspecified dementia, mild, without behavioral disturbance, psychotic disturbance, mood disturbance, and anxiety; J40 Bronchitis, not specified as acute or chronic; Z23 Encounter for immunization | CPT/HCPCS: 83036; 90471; 90656; 93005; 96127; 99212 ==

== ENCOUNTER 2024-11-02 08:56 | Outpatient (AMB) | payer MEDICARE, SELFPAY ==
--- NOTE | 2024-11-02 08:59 | MHC.OFFVIS ---
Intake Visit Reasons: IC Intake Note: New patient presents today for initial visit for IC Urology Medication: Blood Thinner: Antibiotic Allergies: Allergies No Known Allergies Allergy (Verified 11/02/24 09:07) HPI Comments Details: Constanza is a pleasant female. She is a patient of Dr. Luke. She is seen for the following urinary issues - recurrent UTI Vague historian Pain in have vaginal area Background of dementia Recurrent UTI No evidence of constipation Prior imaging CT - Decompressed urinary bladder with mildly thick-walled enhancing mucosa, findings suggestive of possible infectious or inflammatory cystitis Primary care had suggested interstitial cystitis however features by history non consistent Trial topical Estrace May require cystoscopy 4 week follow-up Dr. Medina with [facility] Medical History Urinary tract infection Hyperlipidemia HTN (hypertension) DM type 2 (diabetes mellitus, type 2) Diarrhea Surgical History Hx of appendectomy H/O: hysterectomy Family History Father No problems noted. Mother Hypertension Cancer Brother Cancer Brother Cancer Social History Housing: Condominium Patient Tobacco Use Status: Never used Tobacco e-Cigarette/Vaping Use: Never Used service: No Current occupational status: retired Cognitive needs: No Hearing needs: No Vision needs: Yes Review of Systems Const Denies chills and Denies fever(s) Card Reports no additional complaints and Denies syncope Resp Denies cough GI Denies abdominal pain and Denies heartburn Reports as per HPI and Denies change in libido Neuro Denies syncope Psych Denies change in libido Endo Denies change in libido Physical Exam Const General: cooperative, healthy appearing, comfortable and no acute distress Orientation/consciousness: patient oriented x3 HEENT Face and sinus: Yes normal facial exam Mouth: moist mucous membranes Neck Neck: Yes normal visual inspection, Yes full ROM and Yes trachea midline Chest Chest palpation & inspection: normal inspection of the chest Resp Effort & Inspection: normal respiratory effort, able to speak in complete sentences and no respiratory distress GI Inspection: Yes normal to inspection Back/Spine/Pelvis Cervical Spine: normal cervical lordosis Thoracic/Lumbar Spine: thoracic and lumbar spine normal to inspection Skin General skin exam: no rashes or lesions noted Neuro General: patient oriented x3, gait normal, tone normal and moves all extremities Extrem General: Yes normal to inspection and Yes capillary refill normal Assessment & Plan Assessment & Plan (1) Recurrent UTI: Code(s): N39.0 - Urinary tract infection, site not specified Category: Medical Plan Four week follow-up Dr. Medina Medications: New estradiol 0.01%(0.1mg/gram) vaginally daily 30 days 42.5 grams 1RF N39.0 - Urinary tract infection, site not specified Patient Instructions: This note is constructed using voice recognition software. While every effort has been made to ensure accuracy spa consultant errors may have been included. Imaging studies, laboratory and physical exam results were discussed and reviewed in detail. No major barriers to patient understanding were identified. An opportunity to ask questions regarding the treatment plan was provided. All questions were answered. The patient expressed understanding and agreement with the above treatment plan. The patient is aware they should contact our office by phone for worsening of their current condition or the appearance of new urologic symptoms. Compliance is encouraged with any medications and followup testing that is ordered. It is a privilege to participate in the urologic care of your patient. If you have any questions or concerns regarding treatment for the above conditions, or other urologic issues, please do not hesitate to contact me. The office telephone contact is [phone]. Sincerely, Dr Dieudonne Dang MD, [facility] - Urology Compassionate Specialist Care for the Genitourinary System Coding Level of Care Code New Pt Level 4 (53056) Diagnoses Recurrent UTI N39.0
--- OUTSIDE RECORDS SUMMARY | 2024-11-02 09:27 | XMS_ITS | Patient Health Record ---
Author Organization Perla Ca MD [place] Address [address] [facility] [address] [place] [address] Care Team Providers Care Business Manager [employer] Name Role Phone ClaudemiloKennedy Primary Care Provider PERLA Frias Unavailable [phone] Reason For Referral No Information Medications Medication SIG (Take, Route, Frequency, Duration) Notes Start Date End Date Status metFORMIN HCl 500 MG 1 tablet with meals Orally once a day Active Multivitamin Adult - Orally Active Calcium + D Active Atorvastatin Calcium 80 MG 1 tablet Oral ly Once a day Active Atenolol 50 MG 1 tablet Orally Once a day Active Aspirin Adult Low Strength 81 MG 1 tablet Orally Once a day Active Levothyroxine Sodium 125 MCG 1 tablet on an empty stomach in the morning Orally Once a day Active Montelukast Sodium 10 MG 1 tablet in the evening Orally Once a day Active Lisinopril 10 MG 1 tablet Orally Once a day Active Social History Tobacco Use: Social History Observation Description Date Details (start date - stop date) Never Smoker NA - NA Tobacco Use/Smoking Question Answer Notes Are you a nonsmoker Alcohol Screen (Audit-C) Question Answer Notes Did you have a drink containing alcohol in the p ast year? No Points 0 Interpretation Negative Problems Problem Type SNOMED Code ICD Code Onset Dates Problem Status W/U Status Risk Notes Problem Other obesity du e to excess calories (E66.09) Active confirmed Problem Obesity (236874098) Obesity, unspecified (E66.9) Active confirmed Problem Diverticula of intestine (14132567) Diverticulosis of intestine, part unspecified, without perforation or abscess without bleeding (K57.90) Active confirmed Problem Second degree hemorrhoids (134983249) Second degree hemorrhoids (K64.1) Active confirmed Problem History of polyp of colon (situation) (147862916) Personal history of colonic polyps (Z86.010) Active confirmed Plan Of Treatment No Information Insurance Providers Payer Name Payer Address Payer Phone Subscriber Number Group Number Insured Name Patient Relationship to Insured Coverage Start Date Coverage End Date MEDICARE OF [place] [address] [place] [id number] Constanza Friend Self - patient is the insured Medical (General) History Medical History History ICD Code abnormal cardiovascular stress test allergic rhinitis benign essential hypertension CKD hyperlipidemia hypothyroidism impaired fasting glucose kidney stone obesity obstructive sleep apnea osteoporosis polyposis coli skin cancer diabetes mellitus colonoscopy 09/26/17/severe left colon d iverticulosis, internal hemorrhoids Surgical History Surgery Date(Month/Year) thyroidectomy hysterectomy appendectomy
== END 2024-11-02 09:43 | disposition home or self-care (01) ==
LOC: HO.HUSH 08:56
PROVIDERS: PCP Nurse Practitioner Family; Visit Provider Urology
DX: N39.0 Urinary tract infection, site not specified (principal)
CPT/HCPCS: 99204

== ENCOUNTER → 2024-11-02 08:56 | Outpatient (BNVA) | payer MEDICARE, SELFPAY | PROVIDERS: PCP Nurse Practitioner Family; Visit Provider Urology | DX: N39.0 Urinary tract infection, site not specified (principal) | CPT/HCPCS: 99202 ==

== ENCOUNTER 2025-05-27 10:32 | Outpatient (AMB) | payer MEDICARE, SELFPAY ==
--- NOTE | 2025-05-27 10:35 | A.OFFPC_ITS ---
Vital Signs 05/27/25 10:40 05/27/25 11:11 Height 5 ft 6 in Weight 140 lb BMI 22.6 BP 142/80 H 112/68 Blood Pressure Location Rt brachial Rt brachial Position Sitting Sitting Respiration 13 Pulse 103 H 94 Pulse Source Pulse Oximeter Pulse Oximeter Temp 97.6 F Temp Source Oral Pulse Oximetry (%) 96 Oxygen Delivery Method Room Air Intake Visit Reasons: follow up Intake Note: Follow up. Patient needs refill on meds. 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: No Allergies No Known Allergies Allergy (Verified 05/27/25 10:59) Medication List - Last Reconciled 05/27/25 by Ivette Bynum, NUCLEAR EQUIPMENT TEST ENGINEER- atenolol 25 mg (1/2 x 50 mg) PO DAILY 90 days atorvastatin 80 mg PO DAILY azithromycin For 250 mg dose pack: take 500 mg today (day 1), then 250 mg for 4 days (days 2-5) PO 5 days diclofenac sodium 1% 4 grams topical QID estradiol 0.01%(0.1mg/gram) vaginally daily 30 days levothyroxine (Synthroid) 100 mcg PO DAILY lidocaine 4% 1 appl topical TID PRN melatonin 3 mg PO BEDTIME PRN metformin ER 500 mg PO BID 90 days valsartan 320 mg PO DAILY Tobacco use date assessed: 05/27/25 Fall risk assessment: No Falls in past year Last assessed Fall Risk: 05/27/25 Dental Screening Dental Screen Date: 05/27/25 Did you have a dental visit in the last 12 months?: Yes Did you have a dental problem in the last 6 months where you did not have access to dental care?: No Was dental information given to patient?: Patient has dentist HPI HPI Comments History of Present Illness Details 85-year-old female with diabetes type 2, hypertension, hyperlipidemia , recurrent UTIs, hypothyroidism, left-sided sciatica, CKD 3a, Dementia, LBBB status post hysterectomy 1987, thyroid removed 2012, appendectomy Health Maintenance Flu 05/27/25 Specialist/ Unga of Care: ObGyn Dr Velia Torres [facility] 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 Recurrent Urinary Tract Infections: - The patient has a history of recurrent UTIs managed by urology and has shown significant improvement with the use of estradiol cream. - While there is still a little pain upo n urination, it subsides quickly and is a great improvement from the previous severe pain. - The patient also reports frequent urin ation approximately every half hour. Type 2 Diabetes Mellitus: - The patient has a history of type 2 di abetes and was previously taking metformin. - Metformin was discontinued due to a lo w A1c of 5.6 and because it was suspected of causing stomach issues, including diarrhea. - There is some confusion as to whether the patient has been taking metformin, as the patient reports taking a medication twice daily, which was the frequency of the metformin prescription. Hypertension: - The patient has a history of hypertens ion and takes atenolol and valsartan. - The patient ran out of a blood pressur e medication two days ago. - BP controlled w/current meds Hypothyroidism: - The patient has a history of hypothyro idism and takes levothyroxine. Diarrhea: - The patient has a history of frequent diarrhea, which was a suspected side effect of metformin. - The patient experienced an episode of watery diarrhea last night. - The patient reports that the diarrhea is better but still present at times, occurring less often than before. Unintentional weight loss: - The patient's weight is down, with a l oss of almost 15 pounds in the last year. - The patient's caregiver reports the pa janell has zero appetite and eats like a bird. - The patient states an absence of appet ite, eating only out of necessity, though does enjoy sweets. - The patient's reported diet includes c hicken strips, diced peaches, tuna fish, toast, bananas, and meatballs. Past Medical History - Type 2 diabetes mellitus - Hypertension - Hypothyroidism - Recurrent urinary tract infections - Chronic kidney disease, stage 3a - Dementia - Left bundle branch block Review of Systems - Constitutional: Reports poor appetite and weight loss. - Cardiovascular: Denies chest pain. - Gastrointestinal: Reports an episode o f watery diarrhea yesterday and occasional diarrhea. - Genitourinary: Reports urinary frequen cy every half hour and mild, resolving pain with urination. - Musculoskeletal: The patient reports l eg pain, but states nothing can be done for it. - Extremities: Reports chronic ankle swe lling, which is stable. Exam: Awake alert, NAD, pleasant, accompanied by nieceAreli. Amb w/ slow gait using walker RRR LS CTAB, dry cough noted during exam w/o distress Nonpitting edema BLE, + varicose veins,decreased PP bilat, skin intact Neuro: Mildly forgetful, defers to niece for fine details; uncertain about time/date. Results Pending Medical Decision Making The patient is an 85-year-old individual with multiple chronic conditions, including type 2 diabetes, hypertension, hypothyroidism, CKD stage 3a, dementia, a left bundle branch block, and a history of recurrent UTIs. The patient's recurrent UTIs have improved significantly with estradiol cream, but the patient now reports new-onset urinary frequency, prompting a urinalysis to rule out an active infection. The patient was previously taken off metformin for diabetes due to a low A1c of 5.6 and suspected gastrointestinal side effects such as diarrhea. However, given a recent episode of watery diarrhea and confusion over current medications, t here is a suspicion the patient may have resumed it. An A1c will be checked to assess glycemic control. There is concern for significant weight loss over the past year, associated with poor appetite. Lab work, including thyroid function tests, will be obtained to rule out a metabolic cause. Medication refills will be managed pending these lab results. Plan 1. Recurrent Urinary Tract Infections/Ur inary Frequency - Given the patient's new complaint of u rinary frequency, a urinalysis will be performed today to check for bacteria. - If the urine shows an infection, an an tibiotic will be prescribed and sent to the local pharmacy. - The prescription for estradiol cream, which has been effective, will be renewed and sent to the local [facility]. 2. Type 2 Diabetes Mellitus - Patient has a history of being taken o ff metformin due to a low A1c of 5.6. - There is suspicion the patient may sti ll be taking metformin, which could be contributing to diarrhea. - Plan to check A1c with today's labs to confirm glycemic control. - Will hold off on renewing prescription s until lab results are available. 3. Unintentional Weight Loss - The patient has experienced weight los s and has a poor appetite. - Will check labs, including thyroid fun ction, to investigate potential underlying causes. - The immediate goal is to maintain the patient's current weight. 4. Health Maintenance - An influenza vaccine will be administe red today. - All of the patient's prescriptions kari l be renewed and sent to the mail-away pharmacy after lab results are reviewed. - The patient's annual follow-up visit s chedualexis for July will be rescheduled to the spring. Patient Instructions - Please go to the lab today to give a u rine sample and have blood work done. - You will receive a flu shot today befo re you leave. - We will renew all your prescriptions a nd send them to the pharmacy after we get your lab results back, which should be today. - Your [facility] for est[facility], and the rest will be sent to your mail-away pharmacy. - If we find an infection in your urine, we will send a prescription for an antibiotic to your local pharmacy. - Please check at home to make sure you are not taking metformin, as this medication was stopped and can cause diarrhea. - We will reschedule your annual visit f rom July to sometime in the spring. - Please stop at the front maker to sched ule your labs and your next appointment. Consent The patient provided verbal consent for a flu shot and for lab work, including a urinalysis and blood draw, to be performed during the visit. Patient was informed and verbally consented to the use of an ambient scribe for clinic note documentation during this visit. Total time spent caring for the patient today was 30 minutes. This includes time spent before the visit reviewing the chart, time spent during the visit, and time spent after the visit on documentation, reviewing laboratory results, diagnostic imaging, medications, performing a medically necessary evaluation, counseling on diagnoses, care coordination, ordering appropriate tests, ordering appropriate medications, review of tests performed by other providers, reporting test results with the patient, communication with other healthcare providers. [facility] History Urinary tract infection Hyperlipidemia HTN (hypertension) DM type 2 (diabetes mellitus, type 2) Diarrhea Surgical History Hx of appendectomy H/O: hysterectomy Family History Father No problems noted. Mother Hypertension Cancer Brother Cancer Brother Cancer Social History Housing: Condominium Patient Tobacco Use Status: Never used Tobacco e-Cigarette/Vaping Use: Never Used Second Hand Smoke Exposure: No service: No Current occupational status: retired Cognitive needs: No Hearing needs: No Vision needs: Yes Questionnaire PHQ-9 Over the last 2 weeks, how often have you been bothered by any of the following problems? 1. Little interest or pleasure in doing things: not at all 2. Feeling down, depressed, or hopeless: not at all 3. Trouble falling or staying asleep, or sleeping too much: not at all 4. Feeling tired or having little energy: not at all 5. Poor appetite or overeating: not at all 6. Feeling bad about yourself - or that you are a failure or have let yourself or your family down: not at all 7. Trouble concentrating on things, such as reading the newspaper or watching television: not at all 8. Moving or speaking so slowly that other people could have noticed. Or the opposite - being so fidgety or restless that you have been moving around a lot more than usual: not at all 9. Thoughts that you would be better off or of hurting yourself in some way: not at all Total score: 0 Depression Screening Interpretation: Negative Depression Screening Done: Yes 08185 - PHQ-9 Billing: Yes Source: Developed by Drs. Tremayne Gomez, Malu Muro, Mj Taylor and colleagues, with an educational viky from [employer]. Thrive Questionnaire Date Thrive assessed: 07/09/24 I am a: Patient What is your living situation today?: I have a steady place to live Within the past 12 months, did the food you bought not last and you didn't have the money to get more?: Never true Within the past 12 months, did you worry whether your food would run out before you got money to buy more?: Never true Do you have trouble paying for medicines?: No Do you have trouble getting transportation to medical appointments?: No Do you have trouble paying your heating and electricity bill?: No Do you have trouble taking care of your child, family member or friend?: No Do you have trouble with day-to-day activities such as bathing, preparing meals, shopping, managing finances, etc.?: No Are you currently unemployed and looking for a job?: No Are you interested in more education?: No Please select the resources that you would like help with: None Currently or been in a relationship where the following occur: No concerns reported THRIVE Score: 0 AUDIT C Alcohol Use Questionnaire (AUDIT-C) 1. How often do you have a drink containing alcohol?: Never 3. How often do you have six or more drinks on one occasion?: Never Total Score: 0 Score Reviewed/Action Taken: Yes ROBBY-7 AMB Questionnaire ROBBY-7 Date ROBBY - 7 assessed: 05/27/25 Feeling nervous, anxious, or on edge: 0 = Not at all Not being able to stop or control worryin = Not at all Worrying too much about different things: 0 = Not at all Trouble relaxin = Not at all Being so restless that it is hard to sit still: 0 = Not at all Becoming easily annoyed or irritable: 0 = Not at all Feeling afraid as if something awful might happen: 0 = Not at all Total ROBBY-7 score (0-4 normal; 5-9 mild; 10-14 moderate; 15-21 severe): 0 Source: Developed by Drs. Tremayne Gomez, Malu Muro, Mj Taylor and colleagues, with an educational viky from [employer]. ROBBY-7 Assessment Billing ROBBY-7 Assessment Tool: ROBBY-7 Assessment 79322 Physical exam (Primary Care) Vital Signs: Last Vital Signs Temp 97.6 F 05/27/25 10:40 Pulse 94 05/27/25 11:11 Resp 13 05/27/25 10:40 BP 112/68 05/27/25 11:11 Pulse Ox 96 05/27/25 10:40 Oxygen Delivery Method Room Air 05/27/25 10:40 BMI result Body Mass Index 22.6 Tobacco/Smoking Status: Tobacco use Status Tobacco use date assessed 05/27/25 05/27/25 10:38 Patient Tobacco Use Status Never used Tobacco 05/27/25 10:38 e-Cigarette/Vaping Use Never Used 05/27/25 10:38 Depression Screening Interpretation: Negative Thrive Assessment: Date of Thrive Assessment Date Thrive assessed 07/09/24 05/27/25 10:38 Currently or been in a relationship where the following occur: No concerns reported Office Procedures Flu Questionnaire Does the patient have a severe egg allergy?: No Does the patient have severe life threatening allergies?: No Does the patient have a fever or illness today?: No Has the patient ever had Guillain-[place] Syndrome?: No Has the patient ever had any past reaction to a flu shot?: No Immunizations Fluarix [id number] (PF) 45 mcg (15 mcg x 3)/0.5 mL IM syringe Performing Provider: JOSE ROBERTO Stevenson Performing Location: [facility] [place] [facility] Medicine Administered by: Claude Hampton MA on 05/27/25 11:18 Dose Route Admin Location Dispensed Lot Number Expiration Date NDC Personnel Counselor 0.5 mL IM Left Deltoid 0.5 mL [id number] 12/31/25 29095-829-16 MicroEval VIS Given Date VIS Provided VIS Publication Date 05/27/25 Single Vaccine 24 Eligibility Eligibility Date Funding Source Not [facility] Eligible 05/27/25 Private Coding Level of Care Code Est Pt Level 4 (64732) Complex visit Add On G2211 Diagnoses Primary hypertension I10 Hypertension type: primary hypertension Type 2 diabetes mellitus with stage 3a chronic kidney disease, without long-term current use of insulin E11.22; N18.31 Diabetes mellitus intermediate manager insulin use: without half-way use Diabetes mellitus complication status: with kidney complications Diabetes mellitus complication detail: with chronic kidney disease Chronic kidney disease stage: stage 3 (moderate) Chronic kidney disease stage 3 subtype: stage 3a (GFR 45-59) CKD stage 3a, GFR 45-59 ml/min N18.31 Postoperative hypothyroidism E89.0 Hypothyroidism type: postoperative Recurrent UTI N39.0 Influenza vaccination administered at current visit Z23 Diarrhea due to malabsorption K90.9; R19.7 Diarrhea type: due to malabsorption Mixed hyperlipidemia E78.2 Hyperlipidemia type: mixed hyperlipidemia Additional Codes ROBBY-7 Assessment Billing - ROBBY-7 Assessment Tool: ROBBY-7 Assessment 00690 ([id number]) PHQ-9 - 18235 - PHQ-9 Billing: Yes ([id number]) Assessment & Plan Assessment & Plan (1) HTN (hypertension): Code(s): I10 - Essential (primary) hypertension Category: Medical Qualifiers: Hypertension type: primary hypertension Qualified Code(s): I10 - Essential (primary) hypertension (2) DM type 2 (diabetes mellitus, type 2): Code(s): E11.9 - Type 2 diabetes mellitus without complications Category: Medical Qualifiers: Diabetes mellitus intermediate manager insulin use: without half-way use Diabetes mellitus complication status: with kidney complications Diabetes mellitus complication detail: with chronic kidney disease Chronic kidney disease stage: stage 3 (moderate) Chronic kidney disease stage 3 subtype: stage 3a (GFR 45-59) Qualified Code(s): E11.22 - Type 2 diabetes mellitus with diabetic chronic kidney disease; N18.31 - Chronic kidney disease, stage 3a (3) CKD stage 3a, GFR 45-59 ml/min: Code(s): N18.31 - Chronic kidney disease, stage 3a Category: Medical (4) Hypothyroid: Code(s): E03.9 - Hypothyroidism, unspecified Category: Medical Qualifiers: Hypothyroidism type: postoperative Qualified Code(s): E89.0 - Postprocedural hypothyroidism (5) Recurrent UTI: Code(s): N39.0 - Urinary tract infection, site not specified Category: Medical (6) Influenza vaccination administered at current visit: Onset Date: ~05/27/25 Code(s): Z23 - Encounter for immunization Category: Medical (7) Diarrhea: Code(s): R19.7 - Diarrhea, unspecified Category: Medical Qualifiers: Diarrhea type: due to malabsorption Qualified Code(s): K90.9 - Intestinal malabsorption, unspecified; R19.7 - Diarrhea, unspecified (8) Hyperlipidemia: Code(s): E78.5 - Hyperlipidemia, unspecified Category: Medical Qualifiers: Hyperlipidemia type: mixed hyperlipidemia Qualified Code(s): E78.2 - Mixed hyperlipidemia Plan . Orders: Orders Hemoglobin A1c Today E11.22 - Type 2 diabetes mellitus with diabetic chronic kidney disease, E89.0 - Postprocedural hypothyroidism, I10 - Essential (primary) hypertension, N18.31 - Chronic kidney disease, stage 3a, N39.0 - Urinary tract infection, site not specified Urine Culture Today E11.22 - Type 2 diabetes mellitus with diabetic chronic kidney disease, E89.0 - Postprocedural hypothyroidism, I10 - Essential (primary) hypertension, N18.31 - Chronic kidney disease, stage 3a, N39.0 - Urinary tract infection, site not specified UA CC w/rflx Micro + Cult Today E11.22 - Type 2 diabetes mellitus with diabetic chronic kidney disease, E89.0 - Postprocedural hypothyroidism, I10 - Essential (primary) hypertension, N18.31 - Chronic kidney disease, stage 3a, N39.0 - Urinary tract infection, site not specified, R30.0 - Dysuria Influenza [id number] Immunization Today Z23 - Encounter for immunization Medications: Refilled estradiol 0.01%(0.1mg/gram) vaginally daily 42.5 grams 1RF 30 days N39.0 - Urinary tract infection, site not specified Discontinued azithromycin Discontinued Reason: Patient Completed Course For 250 mg dose pack: take 500 mg today (day 1), then 250 mg for 4 days (days 2-5) PO 5 days 6 tabs 0RF metformin ER Discontinued Reason: Patient Completed Course 500 mg PO BID 90 days 180 tabs 2RF
[2025-05-27 10:40] VITALS: BP 142/80; PULSE 103; RESP 13; TEMP 36.4; O2SAT 96; BMI 22.6
[2025-05-27 11:11] VITALS: BP 112/68; PULSE 94
--- OUTSIDE RECORDS SUMMARY | 2025-05-27 13:08 | XMS_ITS | Clinical Summary ---
Author Organization [facility] Address [address] [place] [phone] Phone Care Team Providers Care School Social Worker Name Role Phone Pcp, Unknown Primary Care Provider Unavailabl e Allergies No known active allergies Medications atorvastatin (LIPITOR) 80 MG tablet 11/19/2023 Active atenolol (TENORMIN) 50 mg tablet 11/10/2023 Active metFORMIN (GLUCOPHAGE) 500 MG tablet 500 mg 2 (two) times a day. 01/08/2024 Active valsartan (DIOVAN) 320 MG tablet 11/10/2023 Active Active Problems Problem Noted Date Diagnosed Date Pelvic pain 01/12/2024 Assessment & Plan (01/12/2024 1:24 PM EDT): More localized to vulva but the exam does not elicit any tenderness; could be musculoskeletal or neurogenic in origin Check US as precaution; may not be able to tolerate vag transducer Diarrhea 01/12/2024 Overview (01/12/2024): Watery, daily 1-2 times for a month Assessment & Plan (01/12/2024 1:25 PM EDT): Check stool sample (will give sample at [place], closer to home Niece is hoping to establish her with new GP here [place] Maintain hydration and electrolyte intake Family History Medical History Relation Comments Breast cancer Niece Breast cancer Sister Relation Status Comments Niece Alive Sister Social History Tobacco Use Types Packs/Day Years Used Date Smoking Tobacco: Never Smokeless Tobacco: Never Tobacco Cessation:Counseling Given: Not Answered Education Answer Date Recorded Are you interested in more education? Not on brynn e 01/09/2024 Are you concerned about learning? Not on file 01/09/2024 No 01/09/2024 No 01/09/2024 Digital Access Answer Date Recorded No 01/09/2024 No 01/09/2024 Reliable internet access at home? Not on file 01/09/2024 Device with a working camera? Not on file Comments No Sex and Gender Information Value Date Recorded Sex Assigned at Not on file Legal Sex Female 2:09 PM EDT Gender Identity Not on file Sexual Orientation Not on file Last Filed Vital Signs Vital Sign Reading Time Taken Comments Blood Pressure 128/80 01/12/2024 8:08 AM EDT Pulse - - Temperature - - Respiratory Rate - - Oxygen Saturation - - Inhaled Oxygen Concentration - - Weight 70.3 kg (155 lb) 01/12/2024 8:08 AM EDT Height - - Body Mass Index - - Plan of Treatment Health Maintenance Due Date Last Done Comments Adult Td,Tdap Booster 1941 CREATININE LEVEL 1941 POTASSIUM LEVEL 1941 DEPRESSION SCREENING 1953 PNEUMOCOCCAL VACCINES (50+ y ears) (1 of 1 - PCV) 1991 ZOSTER VACCINES (1 of 2) 1991 OSTEOPOROSIS SCREENING INITI AL (ONE-TIME) 2006 RSV VACCINE (1 - 1-dose 75+ series) 2016 INFLUENZA VACCINE (#1) 2025 COVID-19 VACCINE (1 - 2024-2 6 season) 2025 HEPATITIS A VACCINES Aged Out No long er eligible based on patient's age to complete this topic HIB VACCINES Aged Out No longer eligi ble based on patient's age to complete this topic MENINGOCOCCAL VACCINES (ACWY) Aged Out No longer eligible based on patient's age to complete this topic MENINGOCOCCAL VACCINES (B) Aged Out N o longer eligible based on patient's age to complete this topic Medical Devices Not on file Insurance [facility] MEDICARE REPLACEMENT MEDICARE REPLACEMENT MEDICARE REPLACEMENT MEDICARE REPLACEMENT [facility] MEDICARE REPLACEMENT [facility] MEDICARE REPLACEMENT Care Teams School Social Worker Relationship Specialty Start Date End Date Pcp, Unknown PCP - General 01/09/24 Additional Source Comments The information contained in this document represents components of the legal health record. It is not the complete legal health record.[facility]
== END 2025-05-27 11:20 | disposition home or self-care (01) ==
LOC: HO.HMCFM 10:33
PROVIDERS: PCP Nurse Practitioner Family; Visit Provider Nurse Practitioner Family
DX: I10 Essential (primary) hypertension (principal); E11.22 Type 2 diabetes mellitus with diabetic chronic kidney disease; N18.31 Chronic kidney disease, stage 3a; E89.0 Postprocedural hypothyroidism; N39.0 Urinary tract infection, site not specified; Z23 Encounter for immunization; K90.9 Intestinal malabsorption, unspecified; R19.7 Diarrhea, unspecified; E78.2 Mixed hyperlipidemia

== ENCOUNTER 2025-05-27 10:32 | Outpatient (REF) | payer MEDICARE, SELFPAY ==
[2025-05-27 14:24] LABS: Appearance Urine Turbid; Glucose Urine UA Negative (Negative); PH 5.5 (5.0-9.0); Specific Gravity - Urine 1.020 (1.005-1.025); UMIC TRIGGER UACC YES
[2025-05-27 14:54] LABS: UACC Culture Trigger YES
--- OUTSIDE RECORDS SUMMARY | 2025-05-27 15:06 | XMS_ITS ---
Author Organization Unknown ENCOUNTERS Encounter Performer Location Date Diagnosis Diagnosis Status Emergency [place] [address] [id number] [place] Pre Admit [facility] ED Physician [address] [id number] [place] *Note: Encounters from your own facility or health system may be excluded. Allergies, Adverse Reactions, Alerts Allergen Type Severity Identification Date Medications Name Date Quantity Days Supplied GPI Number
[2025-05-27 15:32] LABS: Folate 7.1 ng/mL (> or = 4.0); Vitamin B12 314 pg/mL (200-900)
[2025-05-27 16:43] LABS: Anion Gap 13 (12-20)
[2025-05-27 16:48] LABS: Alanine Aminotransferase 25 U/L (0-31); Albumin Level 4.4 g/dL (3.5-5.0); Alkaline Phosphatase 83 U/L (39-117); Aspartate Amino Transferase 34 U/L (5-31); Blood Urea Nitrogen 16 mg/dL (9-16); Calcium 9.5 mg/dL (8.4-10.2); Carbon Dioxide 26 mmol/L (22-29); Chloride 106 mmol/L (96-108); Cholesterol 136 mg/dL (<200); Estimated Glomerular Filt Rate > 60; HDL Cholesterol 38 mg/dL (>40); Potassium 4.1 mmol/L (3.3-5.1); Sodium 141 mmol/L (135-145); Total Protein 7.2 g/dL (6.5-8.0); Triglycerides 172 mg/dL (<150)
[2025-05-27 17:08] LABS: Free T4 (Free Thyroxine) 1.41 ng/dL (0.71-1.85)
[2025-05-27 17:21] LABS: Microalbum/Creatinine Ratio Ur 99.9 ug/mg cr (<30)
== END 2025-05-27 10:33 | disposition home or self-care (01) ==
LOC: HO.WFDLDS 10:32
PROVIDERS: PCP Nurse Practitioner Family; Visit Provider Nurse Practitioner Family
DX: E78.2 Mixed hyperlipidemia (principal); E11.22 Type 2 diabetes mellitus with diabetic chronic kidney disease; I12.9 Hypertensive chronic kidney disease with stage 1 through stage 4 chronic kidney disease, or unspecified chronic kidney disease; R19.7 Diarrhea, unspecified; R63.4 Abnormal weight loss; N39.0 Urinary tract infection, site not specified; N18.31 Chronic kidney disease, stage 3a; E89.0 Postprocedural hypothyroidism; K90.9 Intestinal malabsorption, unspecified; Z23 Encounter for immunization
CPT/HCPCS: 36415; 80053; 80061; 81001; 82043; 82306; 82570; 82607; 82746; 83036; 84439; 84443; 87086; 87088; 87186; 90471; 90656; 96127; 99212